=== PATIENT | female | born 1970 | race African-American/Black ===

== ENCOUNTER 2017-07-24 09:51 | Observation (INO) | payer BC ==
--- NOTE | 2017-07-24 10:42 | RAD ---
2 VIEWS CHEST: Date: 07/24/17 COMPARISON: 10/22/07. HISTORY: Syncope. Patient was found on the ground in the bathroom by her son. FINDINGS: Two views of the chest show an enlarged but stable cardiomediastinal silhouette. There is no evidence of consolidation, mass, or pleural effusion. Mild degenerative changes are seen in the spine. IMPRESSION: Stable cardiomegaly. POS: [facility]
[2017-07-24] MEDS ORDERED: Amlodipine 5 MG TAB ONE (10:48)
[2017-07-24] MEDS ORDERED: cloNIDine 0.1 MG TAB ONE (10:48)
[2017-07-24] MEDS ORDERED: Amlodipine 10 MG TAB PO SCH (11:00)
[2017-07-24 11:10] LABS: ALT (SGPT) 14 U/L (8-55); AST (SGOT) 14 U/L (5-34); Albumin 4.1 g/dL (3.5-5.0); Alkaline Phosphatase 82 U/L (40-150); Anion Gap 13 mmol/L (10-20); BUN (Urea Nitrogen) 21 mg/dL (7.0-18.7); Bilirubin, Total 0.7 mg/dL (0.2-1.2); CK (CPK) 85 U/L (29-168); Calc. Creatinine Clearance 0 mL/min (70-130); Calcium 9.9 mg/dL (7.8-10.44); Carbon Dioxide 26 mmol/L (22-29); Chloride 103 mmol/L (98-107); Estimated GFR-MDRD 44; Globulin 3.8 g/dL (2.4-3.5); Glucose 105 mg/dL (70-105); Lipase 15 U/L (8-78); Potassium 4.1 mmol/L (3.5-5.1); Protein, Total 7.9 g/dL (6.0-8.3); Sodium 138 mmol/L (136-145)
[2017-07-24 11:13] LABS: CKMB 2.8 ng/mL (0-6.6); Troponin I 0.056 ng/mL (< 0.028)
--- NOTE | 2017-07-24 11:26 | CT ---
BRAIN CT WITHOUT IV CONTRAST: Date: 07/24/17 HISTORY: 46-year-old female with syncope. History of prior TIA. FINDINGS: There is no focal mass or midline shift. No intra or extra-axial hemorrhage. Sinuses and mastoids are clear of acute process. There are some scattered scalp calcifications. IMPRESSION: No acute intracranial process. No mass or bleed. POS: [facility]
[2017-07-24 11:31] LABS: BHCG - Serum Negative (NEGATIVE); Pregs Control Background? CLEAR/WHITE (CLR/WHITE); Pregs Control Bar Appear? YES (CONTROL BAR)
[2017-07-24 11:33] LABS: #Eosinphils 0.2 thou/uL (0.0-0.7); #Lymphocytes 1.2 thou/uL (1.20-3.40); #Monocytes 0.6 thou/uL (0.11-0.59); #Neutrophils 7.4 thou/uL (1.40-6.50); %Basophils 0.1 % (0.0-1.0); %Eosinophils 2.5 % (0.0-10.0); %Lymphocytes 12.8 % (21.0-51.0); %Monocytes 6.5 % (0.0-10.0); %Neutrophils 78.1 % (42.0-75.0); Hemoglobin 14.2 g/dL (12.0-16.0); Mean Corpuscular HGB CONC 31.5 g/dL (32.0-36.0); Mean Corpuscular Hemoglobin 28.4 pg (27.0-31.0); Mean Corpuscular Volume 90.1 fl (81.0-99.0); Mean Platelet Volume 7.4 fL (7.4-10.4); Platelet Count 291 thou/uL (130-400); Red Blood Cell (RBC) Count 4.99 mill/uL (4.20-5.40); White Blood Cell (WBC) Count 9.4 thou/uL (4.8-10.8)
[2017-07-24 13:08] LABS: Troponin I 0.069 ng/mL (< 0.028)
[2017-07-24] MEDS ORDERED: Nitroglycerin 2% Ointment 1 INCH/1 GM Packet ONE (14:20)
[2017-07-24] MEDS ORDERED: Sodium Chloride 0.65% Nasal 44 ML BOT EA NARE PRN (15:44)
[2017-07-24] MEDS ORDERED: Loratadine 10 MG TAB PO PRN (15:44)
[2017-07-24] MEDS ORDERED: Zolpidem Tartrate 5 MG TAB PO PRN (15:44)
[2017-07-24] MEDS ORDERED: Milk Of Magnesia 30 ML UDCUP PO PRN (15:44)
[2017-07-24] MEDS ORDERED: Diabetic Tussin 200 MG/10 ML UDCUP PO PRN (15:44)
[2017-07-24] MEDS ORDERED: Senokot 8.6 MG TAB PO PRN (15:44)
[2017-07-24] MEDS ORDERED: Chloraseptic Spray 180 ml Bottle PO PRN (15:44)
[2017-07-24] MEDS ORDERED: hydrALAZINE 20 MG/ML VIAL SLOW IVP PRN (15:44)
[2017-07-24] MEDS ORDERED: Eucerin (Mineral Oil/Petrolatum,White) 30 gm Jar TOP PRN (15:44)
[2017-07-24] MEDS ORDERED: Loperamide HCl 2 MG CAP PO PRN (15:44)
[2017-07-24] MEDS ORDERED: Mag-Al 1200 mg/1200 mg/30 ML UDCUP PO PRN (15:44)
[2017-07-24] MEDS ORDERED: Nitroglycerin 0.4 MG TAB (25 Tab Bottle) SL PRN (15:44)
[2017-07-24] MEDS ORDERED: Ondansetron HCl/PF 4 MG/2 ML Vial IVP PRN (15:44)
[2017-07-24] MEDS ORDERED: Acetaminophen 325 MG TAB PO PRN (15:44)
[2017-07-24] MEDS ORDERED: Ondansetron ODT 4 MG TAB PO PRN (15:44)
[2017-07-24] MEDS ORDERED: Artificial Tear Sol 15 ML BOT EA EYE PRN (15:44)
--- NOTE | 2017-07-24 15:59 | HP ---
PRIMARY CARE PHYSICIAN: Marc Brush M.D. REASON FOR ADMISSION: Syncope. HISTORY OF PRESENT ILLNESS: A 46-year-old female with a history of hypertension who presented to the emergency room for evaluation of syncope. The patient does not have any recall of event, but patient's son found her in bathroom. The patient reports that she went to restroom and mccloud bsequently she remembered being on the floor. She does not know how this happened, but she did not h ave any chest pain, palpitation, dizziness. She denies any headache. She denies any focal motor or sensory symptoms. She denies any diarrhea, or UTI symptoms. She denies any orthopnea, PND or leg sw elling. She denies any calf tenderness. She denies any immobilization. Patient reports that she was dealing with high blood pressure at home. She was not tolerating lisino pril and recently her medication was changed to amlodipine and she was taking clonidine. Patient rep orts that she did not took her medication yesterday and she had marijuana on . When this patient came to the ER, her blood pressure was very high. As per paramedics, blood pressur e was 210/122 and blood sugar was 140. When she arrived to the emergency room, her blood pressure re duced to 196/119. In the emergency room, patient has received aspirin, nitropatch, and Norvasc 10 mg and clonidine 0.1 mg. Routine blood tests showed slightly indeterminate troponin. When I saw this patient, patient does not have any focal neurological deficit. She does not have any chest pain and palpitation. She is feeling normal. REVIEW OF SYSTEMS: The following complete review of systems was negative, unless otherwise mentioned in the HPI or below: Constitutional: Weight loss or gain, ability to conduct usual activities. Skin: Rash, itching. Eyes: Double vision, pain. ENT/Mouth: Nose bleeding, neck stiffness, pain, tenderness. Cardiovascular: Palpitations, dyspnea on exertion, orthopnea. Respiratory: Shortness of breath, wheezing, cough, hemoptysis, fever or night sweats. Gastrointestinal: Poor appetite, abdominal pain, heartburn, nausea, vomiting, constipation, or diarr hea. Genitourinary: Urgency, frequency, dysuria, nocturia. Musculoskeletal: Pain, swelling. Neurologic/Psychiatric: Anxiety, depression. Allergy/Immunologic: Skin rash, bleeding tendency. Please see my HPI for pertinent positives and negatives. All other review of system reviewed and neg ative except as mentioned in the HPI. PAST MEDICAL HISTORY: History of iron deficiency anemia, hypertension, obesity. PAST SURGICAL HISTORY: Reviewed and negative. PAST PSYCHIATRIC HISTORY: Reviewed and negative. SOCIAL HISTORY: Patient lives at home. She drinks alcohol very occasionally. She abuses marijuana intermittently and last use was yesterday. She denies any smoking or other illicit drug abuse. FAMILY HISTORY: No strong family history of premature coronary artery disease, stroke or cancer. ALLERGIES: No known drug allergies. CURRENT HOME MEDICATIONS: Amlodipine 10 mg p.o. daily and clonidine 0.1 mg p.o. at bedtime. EMERGENCY ROOM COURSE: Patient has received clonidine 0.1 mg, amlodipine 10 mg, nitropatch, and aspi rin 324 mg. PHYSICAL EXAMINATION: VITAL SIGNS: On arrival, blood pressure 196/119, pulse 93, respiratory rate 18, temperature 98.0, sa turation 97% on room air, and weight 136.9 kilograms. GENERAL: Patient is currently hypertensive, no obvious acute distress. HEAD: Normocephalic, atraumatic. EYES: Pupils round, reactive to light. Extraocular muscles intact. ENT: Oropharynx within normal limits. Moist mucous membranes. No oral lesions. No pharyngeal eryt oscar, no exudate. NECK: Supple, no JVD, no thyromegaly, no carotid bruit, no jugular venous distention. LUNGS: Clear to auscultation without any rhonchi or rales. CARDIAC: S1, S2 regular. No murmur, no gallop, no rub. ABDOMEN: Soft, bowel sounds present, obesity present. No peritoneal sign, no guarding, no rigidity, no rebound, no suprapubic tenderness. BACK: Examination unremarkable, no CVA tenderness. EXTREMITIES: Upper extremity; passive movements of all joints are normal. Lower extremities: No ed sonny. Good peripheral pulsation. SKIN: No skin rash. PSYCHIATRIC: Normal affect. HEMATOLOGICAL SYSTEM: No lymphadenopathy. NEUROLOGIC: Patient is alert and oriented x3. Cranial nerves II-XII intact. Speech, normal. Motor 5/5 in all four limbs. Sensation bilaterally symmetrical, no focal neurological deficit noted. IMAGING DATA AND SIGNIFICANT LABORATORY DATA: 1. EKG based on my review reveals normal sinus rhythm, nonspecific ST-T changes, LVH, left atrial en largement and prolonged QTC. 2. CBC: WBC 9.4, hemoglobin 14.2, platelet 291. 3. test negative. 4. Chest x-ray based on my review, no acute cardiopulmonary process. 5. CK-MB 2.8, troponin I 0.056, lipase 15, CK of 85. 6. BMP: Sodium 138, potassium 4.1, chloride 103, carbon dioxide 26, anion gap 13, BUN 21, creatinin e 1.54, glucose 105, calcium 9.9. 7. LFT: Total protein 7.9, albumin 4.1, alkaline phosphatase 82, AST 14, ALT 14. 8. Another troponin 0.069. ASSESSMENT AND PLAN/IMPRESSION: 1. Syncope, etiology uncertain. This patient's syncopal episode was unwitnessed and unexplained. S he has elevated troponin, but troponin is chronically elevated. Her blood pressure is very high, thi s patient will need further evaluation. We will obtain echocardiography, carotid Doppler ultrasound to rule out carotid stenosis and tomorrow morning we will perform stress test to rule out underlying ischemia. We will check lipid profile tomorrow morning and we will monitor on telemetry floor for an y kind of arrhythmia. We will try to control blood pressure more effectively. This patient does not have any focal neurological deficits and her CT brain is negative for any acute intracranial process . 2. Hypertension with hypertensive urgency. Likely due to medication noncompliance as well as dietar y noncompliance. We will continue with amlodipine 10 mg p.o. daily. We will add hydralazine 25 mg p .o. t.i.d. and clonidine 0.1 mg p.o. b.i.d. On discharge, we will consider adding Coreg as well. We will monitor her vitals more frequently and adjust blood pressure medication. 3. Morbid obesity. Dietary education given, weight loss education given. Healthy lifestyle measure s discussed with the patient. 4. Cannabis abuse. The patient is given counseling to avoid cannabis abuse. 5. Chronic kidney disease stage 3. We will monitor renal function and avoid nephrotoxic agent. 6. Hypertension with hypertensive heart disease with left ventricular hypertrophy. We will obtain e chocardiography to assess ejection fraction and other structural abnormality. 7. Deep venous thrombosis prophylaxis not needed because we are expecting discharge in 24 hours. 8. Gastrointestinal prophylaxis, Pepcid 20 mg p.o. b.i.d. 9. Code status: The patient is FULL CODE. Patient does not have any surrogate decision maker. Disposition and plan based on clinical course based on above-mentioned investigation result.
[2017-07-24] MEDS ORDERED: hydrALAZINE 25 MG TAB PO SCH (16:00)
[2017-07-24 16:24] LABS: Troponin I 0.084 ng/mL (< 0.028)
[2017-07-24 17:10] VITALS: BMI 46.5
--- NOTE | 2017-07-24 19:04 | ULT ---
BILATERAL CAROTID DUPLEX ULTRASOUND: 07/24/17 HISTORY: Syncope. Real time color doppler evaluation of the right and left carotid systems was performed. On the right side, peak systolic velocities of the common carotid were 182 cm/s proximally with velocities at the mid and distal level in the 50 to 70 cm/s range. Internal carotid velocities were 48 cm/s and externa l carotid velocities 76 cm/s. On the left side, peak systolic velocities of the proximal common carotid artery were also somewhat e levated at 160 cm/s. More distal velocities were 52 cm/s. Internal carotid velocities were 60 cm/s. E xternal 70 cm/s. Vertebral flow is antegrade bilaterally. IMPRESSION: 1. No evidence of hemodynamically significant stenosis of either internal carotid artery. 2. Mildly elevated velocities of both proximal common carotid arteries incidentally noted. POS: [facility]
[2017-07-24] MEDS: HYDROcodone/Acetaminophen 5/325 mg Tablet PO PRN (19:24)
[2017-07-24] MEDS: Nitroglycerin 2% Ointment 1 INCH/1 GM Packet TOP SCH (20:26)
[2017-07-24] MEDS: hydrALAZINE 25 MG TAB PO SCH (20:28)
[2017-07-24] MEDS: cloNIDine 0.1 MG TAB PO SCH (20:28)
[2017-07-24 22:47] LABS: Amphetamine Not Detected (NotDetected); Barbiturates Screen Not Detected (NotDetected); Benzodiazepine Screen Not Detected (NotDetected); Cocaine Metabolite Screen Not Detected (NotDetected); Medtox Control Line Valid? VALID (VALID); Medtox Reader # READER 1; Methadone Not Detected (NotDetected); Methamphetamine Not Detected (NotDetected); Opiate Screen Not Detected (NotDetected); Oxycodone Screen Not Detected (NotDetected); Phencyclidine (PCP) Not Detected (NotDetected); THC/Cannabinoid Screen Detected (NotDetected); Tricyclic Screen Not Detected (NotDetected)
[2017-07-25] MEDS: HYDROcodone/Acetaminophen 5/325 mg Tablet PO PRN ×2 (01:06→12:12)
[2017-07-25] MEDS: Nitroglycerin 2% Ointment 1 INCH/1 GM Packet TOP SCH ×4 (01:27→22:01)
[2017-07-25 05:53] LABS: Cardiac Risk 3.5 (Less than 4.5)
[2017-07-25] MEDS: cloNIDine 0.1 MG TAB PO SCH ×2 (08:14→20:55)
[2017-07-25] MEDS: Famotidine 20 MG TAB PO SCH (08:15)
[2017-07-25] MEDS: Amlodipine 10 MG TAB PO SCH (08:15)
[2017-07-25] MEDS: hydrALAZINE 25 MG TAB PO SCH ×3 (08:15→20:55)
[2017-07-25 08:21] LABS: Troponin I 0.095 ng/mL (< 0.028)
[2017-07-25] MEDS ORDERED: Aspirin 325 MG TAB PO SCH (09:00)
--- NOTE | 2017-07-25 11:11 | PDOC.PN ---
- Subjective Encounter Start Date: 07/25/17 Encounter Start Time: 07:30 -: old records requested/rev Patient seen and examined. No new complaints. No overnight events - Objective Resuscitation Status: Resuscitation Status FULL:Full Resuscitation MAR Reviewed: Yes Vital Signs & Weight: Vital Signs (12 hours) Temp Pulse Resp BP BP BP Pulse Ox 07/25/17 08:14 97.5 F L 71 14 07/25/17 07:35 97.5 F L 71 14 181/91 H 97 07/25/17 03:01 98.3 F 72 14 167/80 H 100 07/24/17 23:20 98.5 F 76 16 148/71 H 99 Weight Weight 254 lb 12.8 oz I&O: 07/24/17 07/25/17 07/26/17 06:59 06:59 06:59 Intake Total 490 Output Total 250 Balance 240 Result Diagrams: 07/24/17 10:44 07/24/17 10:44 EKG Reviewed by me: Yes (nsr) Phys Exam - Physical Examination Constitutional: NAD HEENT: PERRLA, moist MMs, sclera anicteric Neck: no JVD, supple Respiratory: no wheezing, no rales, no rhonchi Cardiovascular: RRR, no significant murmur, no rub Gastrointestinal: soft, non-tender, no distention, positive bowel sounds Musculoskeletal: no edema, pulses present Neurological: non-focal, normal sensation, moves all 4 limbs Psychiatric: normal affect, A&O x 3 Skin: no rash, normal turgor Dx/Plan (1) Hypertensive urgency Code(s): I16.0 - HYPERTENSIVE URGENCY Status: Acute (2) Syncope Code(s): R55 - SYNCOPE AND COLLAPSE Status: Acute (3) CKD (chronic kidney disease) stage 3, GFR 30-59 ml/min Code(s): N18.3 - CHRONIC KIDNEY DISEASE, STAGE 3 (MODERATE) Status: Chronic (4) Cannabis abuse Code(s): F12.10 - CANNABIS ABUSE, UNCOMPLICATED Status: Chronic (5) Elevated troponin Code(s): R74.8 - ABNORMAL LEVELS OF OTHER SERUM ENZYMES Status: Chronic (6) Morbid obesity with BMI of 45.0-49.9, adult Code(s): E66.01 - MORBID (SEVERE) OBESITY DUE TO EXCESS CALORIES; Z68.42 - BODY MASS INDEX (BMI) 45.0-49.9, ADULT Status: Chronic - Plan cont current plan of care * today echo * stress test * will discharge later today if tests are normal * adjust BP meds * medication reviewed as below * symptomatic treatment Review of Systems - Review of Systems ENT: negative: Ear Pain, Ear Discharge, Nose Pain, Nose Discharge, Nose Congestion, Mouth Pain, Mouth Swelling, Throat Pain, Throat Swelling, Other Respiratory: negative: Cough, Dry, Shortness of Breath, Hemoptysis, SOB with Excertion, Pleuritic Pain, Sputum, Wheezing Cardiovascular: negative: chest pain, palpitations, orthopnea, paroxysmal nocturnal dyspnea, edema, light headedness, other Gastrointestinal: negative: Nausea, Vomiting, Abdominal Pain, Diarrhea, Constipation, Melena, Hematochezia, Other Genitourinary: negative: Dysuria, Frequency, Incontinence, Hematuria, Retention , Other Musculoskeletal: negative: Neck Pain, Shoulder Pain, Arm Pain, Back Pain, Hand Pain, Leg Pain, Foot Pain, Other Skin: negative: Rash, Lesions, Octavio, Bruising, Other - Medications/Allergies Allergies/Adverse Reactions: Allergies Allergy/AdvReac Type Severity Reaction Status Date / Time No Known Allergies Allergy Verified 07/24/17 17:01 Medications: Current Medications Acetaminophen (Tylenol) 650 mg PO Q4H PRN PRN Reason: Headache/Fever or Pain Hydrocodone Bitart/Acetaminophen ([place] 5/325) 1 tab PO Q4H PRN PRN Reason: Moderate Pain (4-6) Last Admin: 07/25/17 01:06 Dose: 1 tab Al Hydroxide/Mg Hydroxide (Maalox) 30 ml PO Q6H PRN PRN Reason: Heartburn or Indigestion Amlodipine Besylate (Norvasc) 10 mg PO DAILY [facility] Last Admin: 07/25/17 08:15 Dose: 10 mg Artificial Tears (Tears Renewed 15ml Bottle) 0 drop EA EYE PRN PRN PRN Reason: Dry Eyes Aspirin (Aspirin Chewable) 81 mg PO DAILY [facility] Last Admin: 07/25/17 08:15 Dose: 81 mg Clonidine (Catapres) 0.1 mg PO Q4H PRN PRN Reason: Systolic BP > 180 Clonidine (Catapres) 0.1 mg PO BID [facility] Last Admin: 07/25/17 08:14 Dose: 0.1 mg Famotidine (Pepcid) 20 mg PO DAILY [facility] Last Admin: 07/25/17 08:15 Dose: 20 mg Guaifenesin (Robitussin Sf) 200 mg PO Q4H PRN PRN Reason: Cough Hydralazine HCl (Apresoline) 10 mg SLOW IVP Q4H PRN PRN Reason: Systolic BP > 180 Hydralazine HCl (Apresoline) 25 mg PO TID [facility] Last Admin: 07/25/17 08:15 Dose: 25 mg Loperamide HCl (Imodium) 2 mg PO PRN PRN PRN Reason: Diarrhea/Loose Stools Loratadine (Claritin) 10 mg PO DAILYPRN PRN PRN Reason: Sinus Symptoms Magnesium Hydroxide (Milk Of Magnesium) 30 ml PO DAILYPRN PRN PRN Reason: Constipation Mineral Oil/White Petrolatum (Eucerin Cream) 0 gm TOP BIDPRN PRN PRN Reason: Dry Skin Nitroglycerin (Nitrostat) 0.4 mg SL Q5MIN PRN PRN Reason: Chest Pain Nitroglycerin (Nitro-Bid 2% Ointment) 0.5 inch TOP Q8HR [facility] Last Admin: 07/25/17 01:27 Dose: Not Given Ondansetron HCl (Zofran Odt) 4 mg PO Q6H PRN PRN Reason: Nausea/Vomiting Ondansetron HCl (Zofran) 4 mg IVP Q6H PRN PRN Reason: Nausea/Vomiting Phenol (Chloraseptic [place] 180 Ml Bot) 0 ml PO PRN PRN PRN Reason: Sore Throat Senna (Senokot) 2 tab PO HSPRN PRN PRN Reason: Constipation Sodium Chloride ([place] Nasal [place] 0.65%) 0 ml EA NARE QIDPRN PRN PRN Reason: Nasal Congestion Zolpidem Tartrate (Ambien) 5 mg PO HSPRN PRN PRN Reason: Insomnia
[2017-07-25] MEDS: cloNIDine 0.1 MG TAB PO PRN (12:09)
[2017-07-26 03:30] VITALS: TEMP 98.2
[2017-07-26] MEDS: HYDROcodone/Acetaminophen 5/325 mg Tablet PO PRN (03:31)
[2017-07-26] MEDS: cloNIDine 0.1 MG TAB PO PRN (03:31)
[2017-07-26] MEDS: cloNIDine 0.1 MG TAB PO SCH (08:22)
[2017-07-26] MEDS: Famotidine 20 MG TAB PO SCH (08:23)
[2017-07-26] MEDS: Amlodipine 10 MG TAB PO SCH (08:23)
[2017-07-26] MEDS: hydrALAZINE 25 MG TAB PO SCH (08:24)
--- NOTE | 2017-07-26 09:54 | PDOC.PN ---
- Subjective Encounter Start Date: 07/26/17 Encounter Start Time: 07:40 Patient seen and examined. No new complaints. No overnight events - Objective Resuscitation Status: Resuscitation Status FULL:Full Resuscitation MAR Reviewed: Yes Vital Signs & Weight: Vital Signs (12 hours) Temp Pulse Resp BP BP Pulse Ox 07/26/17 08:24 72 07/26/17 08:23 72 07/26/17 08:22 179/88 H 07/26/17 07:54 98.2 F 72 14 07/26/17 07:12 98.4 F 64 18 167/85 H 96 07/26/17 06:02 179/88 H 07/26/17 03:31 186/103 H 07/26/17 03:28 98.2 F 72 14 186/103 H 100 07/25/17 23:05 98.4 F 65 20 165/97 H 94 L Weight Weight 254 lb 12.8 oz I&O: 07/25/17 07/26/17 07/27/17 06:59 06:59 06:59 Intake Total 490 510 Output Total 250 Balance 240 510 Result Diagrams: 07/24/17 10:44 07/24/17 10:44 EKG Reviewed by me: Yes (nsr) Phys Exam - Physical Examination Constitutional: NAD HEENT: PERRLA, moist MMs, sclera anicteric Neck: no JVD, supple Respiratory: no wheezing, no rales, no rhonchi Cardiovascular: RRR, no significant murmur, no rub Gastrointestinal: soft, non-tender, no distention, positive bowel sounds Musculoskeletal: no edema, pulses present Neurological: non-focal, normal sensation, moves all 4 limbs Lymphatic: no nodes Psychiatric: normal affect, A&O x 3 Skin: no rash, normal turgor Dx/Plan (1) Hypertensive urgency Code(s): I16.0 - HYPERTENSIVE URGENCY Status: Acute (2) Syncope Code(s): R55 - SYNCOPE AND COLLAPSE Status: Acute (3) CKD (chronic kidney disease) stage 3, GFR 30-59 ml/min Code(s): N18.3 - CHRONIC KIDNEY DISEASE, STAGE 3 (MODERATE) Status: Chronic (4) Cannabis abuse Code(s): F12.10 - CANNABIS ABUSE, UNCOMPLICATED Status: Chronic (5) Elevated troponin Code(s): R74.8 - ABNORMAL LEVELS OF OTHER SERUM ENZYMES Status: Chronic (6) Morbid obesity with BMI of 45.0-49.9, adult Code(s): E66.01 - MORBID (SEVERE) OBESITY DUE TO EXCESS CALORIES; Z68.42 - BODY MASS INDEX (BMI) 45.0-49.9, ADULT Status: Chronic - Plan cont current plan of care * medication reviewed as below * symptomatic treatment * stress test result pending, if normal, will DC to home * see discharge saleem. Review of Systems - Review of Systems ENT: negative: Ear Pain, Ear Discharge, Nose Pain, Nose Discharge, Nose Congestion, Mouth Pain, Mouth Swelling, Throat Pain, Throat Swelling, Other Respiratory: negative: Cough, Dry, Shortness of Breath, Hemoptysis, SOB with Excertion, Pleuritic Pain, Sputum, Wheezing Cardiovascular: negative: chest pain, palpitations, orthopnea, paroxysmal nocturnal dyspnea, edema, light headedness, other Gastrointestinal: negative: Nausea, Vomiting, Abdominal Pain, Diarrhea, Constipation, Melena, Hematochezia, Other Genitourinary: negative: Dysuria, Frequency, Incontinence, Hematuria, Retention , Other Musculoskeletal: negative: Neck Pain, Shoulder Pain, Arm Pain, Back Pain, Hand Pain, Leg Pain, Foot Pain, Other Skin: negative: Rash, Lesions, Octavio, Bruising, Other - Medications/Allergies Allergies/Adverse Reactions: Allergies Allergy/AdvReac Type Severity Reaction Status Date / Time No Known Allergies Allergy Verified 07/24/17 17:01 Medications: Current Medications Acetaminophen (Tylenol) 650 mg PO Q4H PRN PRN Reason: Headache/Fever or Pain Hydrocodone Bitart/Acetaminophen ([place] 5/325) 1 tab PO Q4H PRN PRN Reason: Moderate Pain (4-6) Last Admin: 07/26/17 03:31 Dose: 1 tab Al Hydroxide/Mg Hydroxide (Maalox) 30 ml PO Q6H PRN PRN Reason: Heartburn or Indigestion Amlodipine Besylate (Norvasc) 10 mg PO DAILY [facility] Last Admin: 07/26/17 08:23 Dose: 10 mg Artificial Tears (Tears Renewed 15ml Bottle) 0 drop EA EYE PRN PRN PRN Reason: Dry Eyes Aspirin (Aspirin Chewable) 81 mg PO DAILY [facility] Last Admin: 07/26/17 08:23 Dose: 81 mg Clonidine (Catapres) 0.1 mg PO Q4H PRN PRN Reason: Systolic BP > 180 Last Admin: 07/26/17 03:31 Dose: 0.1 mg Clonidine (Catapres) 0.1 mg PO BID [facility] Last Admin: 07/26/17 08:22 Dose: 0.1 mg Famotidine (Pepcid) 20 mg PO DAILY [facility] Last Admin: 07/26/17 08:23 Dose: 20 mg Guaifenesin (Robitussin Sf) 200 mg PO Q4H PRN PRN Reason: Cough Hydralazine HCl (Apresoline) 10 mg SLOW IVP Q4H PRN PRN Reason: Systolic BP > 180 Hydralazine HCl (Apresoline) 25 mg PO TID [facility] Last Admin: 07/26/17 08:24 Dose: 25 mg Loperamide HCl (Imodium) 2 mg PO PRN PRN PRN Reason: Diarrhea/Loose Stools Loratadine (Claritin) 10 mg PO DAILYPRN PRN PRN Reason: Sinus Symptoms Magnesium Hydroxide (Milk Of Magnesium) 30 ml PO DAILYPRN PRN PRN Reason: Constipation Mineral Oil/White Petrolatum (Eucerin Cream) 0 gm TOP BIDPRN PRN PRN Reason: Dry Skin Nitroglycerin (Nitrostat) 0.4 mg SL Q5MIN PRN PRN Reason: Chest Pain Nitroglycerin (Nitro-Bid 2% Ointment) 0.5 inch TOP Q8HR [facility] Last Admin: 07/25/17 22:01 Dose: Not Given Ondansetron HCl (Zofran Odt) 4 mg PO Q6H PRN PRN Reason: Nausea/Vomiting Ondansetron HCl (Zofran) 4 mg IVP Q6H PRN PRN Reason: Nausea/Vomiting Phenol (Chloraseptic [place] 180 Ml Bot) 0 ml PO PRN PRN PRN Reason: Sore Throat Senna (Senokot) 2 tab PO HSPRN PRN PRN Reason: Constipation Sodium Chloride ([place] Nasal [place] 0.65%) 0 ml EA NARE QIDPRN PRN PRN Reason: Nasal Congestion Zolpidem Tartrate (Ambien) 5 mg PO HSPRN PRN PRN Reason: Insomnia
[2017-07-26 10:05] VITALS: BP 149/82
--- NOTE | 2017-07-26 11:23 | DIS ---
PRIMARY CARE PHYSICIAN: Marc Brush M.D. DATE OF ADMISSION: 07/24/2017 DATE OF DISCHARGE: 07/26/2017 DISCHARGE DISPOSITION: Home. PRIMARY DISCHARGE DIAGNOSES: 1. Syncope, ruled out cardiac etiology. 2. Hypertensive urgency with hypertensive heart disease, chronically elevated troponin, cannabis abu se. SECONDARY DISCHARGE DIAGNOSES: Morbid obesity with body mass index of 46, chronic kidney disease sta ge 3, hypertension. PRIMARY PROCEDURE/OPERATION: None. RADIOLOGICAL INVESTIGATION: Chest x-ray was normal. CT brain was negative for any acute intracrania l process. Echocardiography showed diastolic dysfunction, LVH. Carotid Doppler was negative for any stenosis. Stress test was negative for any reversible ischemia. SIGNIFICANT LABS: WBC 9.4, hemoglobin 14.2, platelet 291. Sodium 138, potassium 4.1, BUN 21, creati nine 1.54, calcium 9.9. LFT normal. Troponin 0.095, LDL 104, lipase 15. test negative. Urine drug screen positive for cannabinoids. DISCHARGE MEDICATIONS: Amlodipine 10 mg p.o. daily, aspirin 81 mg p.o. daily, clonidine 0.1 mg p.o. b.i.d., Pepcid 20 mg p.o. daily, Ferrous sulfate 325 mg p.o. every other day, Lasix 20 mg p.o. daily, hydralazine 25 mg p.o. t.i.d. CONTRAINDICATIONS: None. CODE STATUS: FULL CODE. INPATIENT CONSULTANTS: None. ALLERGIES: No known drug allergy. DISCHARGE PLAN: Post hospital, the patient is advised to follow up with primary care physician in 1 week. HOSPITAL COURSE: A 46-year-old female who had an episode of syncope at home which was unwitnessed an d unexplained. She was brought to the emergency room. She was having hypertensive urgency upon arr ival. She had elevated troponin, but looking at her old history, she had chronically elevated tropon in. Her EKG was showing LVH with repolarization changes. We admitted her to observation floor. Ini tial CT brain was negative. Her subsequent troponin remained indeterminant range. We did echocardio graphy which showed LVH with diastolic dysfunction. Carotid Doppler was normal. Stress test came ba ck negative. The patient was completely asymptomatic while in hospital. Her blood pressure was not well controlle d and that is why we adjusted the above-mentioned medication and all new medication prescriptions sen t to her pharmacy. The patient was given healthy lifestyle measure discussion. The patient is seen and examined at bedside today. Please see my progress note from today for furthe r details. Overall, the patient is medically stable for discharge today.
--- NOTE | 2017-07-26 14:09 | NM ---
CARDIAC SPECT: HISTORY: Syncope. Hypertension. TECHNIQUE: A myocardial perfusion scan was performed using the single isotope protocol with 33 millicuries of te chnetium 99m sestamibi injected intravenously for stress and rest images. Exercise stress was monito red and interpreted by Dr. Mckeon. FINDINGS: A mild fixed defect at the distal anterior wall is likely due to wrist and attenuation artifact rathe r than scar. No reversible defects are seen. GATED SPECT LVEF: 34% WALL MOTION EXAM: Global hypokinesis. IMPRESSION: No evidence of reversible ischemia. POS: [facility]
--- NOTE | 2017-07-28 13:34 | STRESS ---
Acquisition Time: 2017-07-25 10:08:31 Total Exercise Time: 00:08:26 Test Indications: Syncope Medications: Protocol: RENÉE Max HR: 155 BPM 89% of Pred: 173 BPM Max BP: 184/094 mmHG Max Work Load: 7.0 METS RESTING ECG: NORMAL SINUS RHYTHM AT 75 WITH NON-SPECIFIC T-WAVE ABNORMALITIES AND RARE PVCs SYMPTOMS: DYSPNEA ON EXERTION APPROPRIATE BLOOD PRESSURE RESPONSE ECTOPY: NONE ECG RESPONSE: NO SIGNIFICANT CHANGES INTERPRETATION: NEGATIVE ECG/AWAIT NUCLEAR IMAGES FOR DEFINITIVE DIAGNOSIS Confirmed by JAJA HENNING MD ([id number]) on 07/28/2017 1:34:10 PM Referred By: Gema CASTELLANO Confirmed By:JAJA HENNING MD
== END 2017-07-26 10:45 | disposition home or self-care (01) ==
LOC: ERS 09:51 → 2SW 15:43
PROVIDERS: ADMIT Internal Medicine; ATTEND Internal Medicine
DX: R55 Syncope and collapse (principal); I16.0 Hypertensive urgency; I12.9 Hypertensive chronic kidney disease with stage 1 through stage 4 chronic kidney disease, or unspecified chronic kidney disease; N18.3 Chronic kidney disease, stage 3 (moderate); R79.89 Other specified abnormal findings of blood chemistry; F12.10 Cannabis abuse, uncomplicated; E66.01 Morbid (severe) obesity due to excess calories; Z68.42 Body mass index [BMI] 45.0-49.9, adult; Z79.899 Other long term (current) drug therapy
CPT/HCPCS: 36415; 70450; 71020; 78452; 80053; 80061; 80306; 82553; 83690; 84484; 84703; 85025; 93005; 93017; 93306; 93880; 94760; A9500; G0378

== ENCOUNTER 2017-10-04 04:54 | Emergency (ER) | payer BC ==
[2017-10-04] MEDS ORDERED: HYDROcodone/Acetaminophen 10/325 mg Tablet ONE (05:18)
== END 2017-10-04 06:07 | disposition home or self-care (01) ==
LOC: ERS 04:54
DX: S16.1XXA Strain of muscle, fascia and tendon at neck level, initial encounter (principal); I10 Essential (primary) hypertension; Z86.73 Personal history of transient ischemic attack (TIA), and cerebral infarction without residual deficits; Z79.899 Other long term (current) drug therapy; X58.XXXA Exposure to other specified factors, initial encounter
CPT/HCPCS: 99283

== ENCOUNTER 2019-01-01 22:24 | Inpatient (IN) | payer BC, SELFPAY ==
[2019-01-01] MEDS ORDERED: cloNIDine 0.1 MG TAB ONE (22:49)
[2019-01-01] MEDS ORDERED: Amlodipine 5 MG TAB ONE ×2 (22:49→22:51)
[2019-01-01 23:03] LABS: #Basophils 0.1 thou/uL (0.0-0.2); #Eosinphils 0.2 thou/uL (0.0-0.7); #Lymphocytes 1.6 thou/uL (1.20-3.40); #Monocytes 0.6 thou/uL (0.11-0.59); #Neutrophils 6.1 thou/uL (1.40-6.50); %Basophils 0.8 % (0.0-1.0); %Eosinophils 2.2 % (0.0-10.0); %Lymphocytes 19.1 % (21.0-51.0); Hemoglobin 11.6 g/dL (12.0-16.0); Mean Corpuscular HGB CONC 32.6 g/dL (32.0-36.0); Mean Corpuscular Hemoglobin 29.8 pg (27.0-31.0); Mean Corpuscular Volume 91.4 fL (78.0-98.0); Mean Platelet Volume 7.4 fL (7.4-10.4); Platelet Count 232 thou/uL (130-400); RBC Distribution Width 13.2 % (11.5-14.5); Red Blood Cell (RBC) Count 3.88 mill/uL (4.20-5.40); White Blood Cell (WBC) Count 8.6 thou/uL (4.8-10.8)
--- NOTE | 2019-01-01 23:22 | RAD ---
EXAM: CHEST ONE VIEW HISTORY: Syncopal episode. Confusion. COMPARISON: 07/24/2017 FINDINGS: Cardiac silhouette remains enlarged. Pulmonary vasculature is within normal limits. Stable minimal li near scarring is again seen in the left midlung zone. The lungs otherwise remain clear. The osseous structures are intact. IMPRESSION: 1. Cardiomegaly. 2. No acute cardiopulmonary process.
[2019-01-01 23:24] LABS: ALT (SGPT) 9 U/L (8-55); AST (SGOT) 9 U/L (5-34); Albumin 4.2 g/dL (3.5-5.0); Alkaline Phosphatase 79 U/L (40-150); Anion Gap 14 mmol/L (10-20); BUN (Urea Nitrogen) 30 mg/dL (7.0-18.7); Bilirubin, Total 0.5 mg/dL (0.2-1.2); Calc. Creatinine Clearance 0 mL/min (70-130); Calcium 9.3 mg/dL (7.8-10.44); Carbon Dioxide 27 mmol/L (22-29); Chloride 102 mmol/L (98-107); Estimated GFR-MDRD 23; Globulin 2.9 g/dL (2.4-3.5); Glucose 127 mg/dL (70-105); Potassium 3.6 mmol/L (3.5-5.1); Protein, Total 7.1 g/dL (6.0-8.3); Sodium 139 mmol/L (136-145)
[2019-01-01 23:45] LABS: CKMB 1.6 ng/mL (0-6.6)
[2019-01-02] MEDS ORDERED: hydrALAZINE 20 MG/ML VIAL ONE (00:41)
[2019-01-02] MEDS ORDERED: Acetaminophen 325 MG TAB PO PRN (01:18)
[2019-01-02] MEDS ORDERED: Ondansetron ODT 4 MG TAB SL PRN (01:18)
[2019-01-02] MEDS ORDERED: Ondansetron PF 4 MG/2 ML Vial IVP PRN (01:18)
[2019-01-02] MEDS ORDERED: Sodium Chloride 0.9% 1,000 ML IV SCH ×2 (01:30→02:30)
[2019-01-02 01:43] VITALS: BMI 43.0
[2019-01-02] MEDS ORDERED: cloNIDine 0.1 MG TAB PO PRN (02:18)
[2019-01-02 02:42] LABS: Troponin I 0.049 ng/mL (< 0.028)
[2019-01-02 03:06] LABS: Bilirubin Negative (Negative); Blood, Urine Negative (Negative); Clarity CLEAR (Clear); Glucose, Urine (Dipstick) Negative (Negative); Leukocyte Small (Negative); Nitrite Negative (Negative); Protein, Urine (Dipstick) 30 mg/dL (Neg-Trace); Specific Gravity, Urine 1.009 (1.002-1.036); Urobilinogen 0.2 mg/dL (0.2-1.0)
[2019-01-02 03:10] LABS: Bacteria/HPF Rare-Few HPF (None Seen); Hyaline Casts/LPF 0-3 HYALINE CAST LPF (0-3 Hyaline); Pathc Cast-AUWi Flag 0.13 (0-2.49); Squamous Epithelial 0-3 HPF (0-3)
[2019-01-02 03:13] LABS: Urine Culture Reflex Yes Yes
[2019-01-02 03:16] LABS: Amphetamine Not Detected (NotDetected); Barbiturates Screen Not Detected (NotDetected); Benzodiazepine Screen Not Detected (NotDetected); Cocaine Metabolite Screen Not Detected (NotDetected); Medtox Control Line Valid? VALID (VALID); Medtox Reader # READER 1; Methadone Not Detected (NotDetected); Methamphetamine Not Detected (NotDetected); Opiate Screen Not Detected (NotDetected); Oxycodone Screen Not Detected (NotDetected); Phencyclidine (PCP) Not Detected (NotDetected); THC/Cannabinoid Screen Detected (NotDetected); Tricyclic Screen Not Detected (NotDetected)
[2019-01-02] MEDS: hydrALAZINE 20 MG/ML VIAL SLOW IVP PRN ×2 (05:23→20:14)
[2019-01-02 05:50] LABS: #Basophils 0.1 thou/uL (0.0-0.2); #Eosinphils 0.1 thou/uL (0.0-0.7); #Lymphocytes 1.8 thou/uL (1.20-3.40); #Monocytes 0.6 thou/uL (0.11-0.59); #Neutrophils 6.7 thou/uL (1.40-6.50); %Basophils 0.5 % (0.0-1.0); %Eosinophils 1.3 % (0.0-10.0); %Lymphocytes 19.1 % (21.0-51.0); %Monocytes 6.9 % (0.0-10.0); %Neutrophils 72.2 % (42.0-75.0); Hemoglobin 11.3 g/dL (12.0-16.0); Mean Corpuscular HGB CONC 32.9 g/dL (32.0-36.0); Mean Corpuscular Hemoglobin 29.8 pg (27.0-31.0); Mean Corpuscular Volume 90.7 fL (78.0-98.0); Mean Platelet Volume 7.7 fL (7.4-10.4); Platelet Count 220 thou/uL (130-400); RBC Distribution Width 13.3 % (11.5-14.5); White Blood Cell (WBC) Count 9.3 thou/uL (4.8-10.8)
[2019-01-02 06:09] LABS: Anion Gap 13 mmol/L (10-20); BUN (Urea Nitrogen) 33 mg/dL (7.0-18.7); Calc. Creatinine Clearance 48 mL/min (70-130); Calcium 9.4 mg/dL (7.8-10.44); Carbon Dioxide 22 mmol/L (22-29); Chloride 105 mmol/L (98-107); Estimated GFR-MDRD 26; Glucose 108 mg/dL (70-105); Potassium 3.9 mmol/L (3.5-5.1); Sodium 136 mmol/L (136-145)
[2019-01-02 06:13] LABS: Troponin I 0.057 ng/mL (< 0.028)
[2019-01-02] MEDS ORDERED: levETIRAcetam In NaCl (Iso-Os) 1,000 MG in Premix Bag 1 BAG IVPB SCH (06:15)
[2019-01-02] MEDS ORDERED: Labetalol HCl 100 MG/20 ML VIAL ONE (06:35)
--- NOTE | 2019-01-02 06:51 | PDOC.EVN ---
Event Note - Event Note Event Note: Code Anand called at 06:00 after patient found to be tachycardic with hemoptysis. Initial vital signs revealed normal heart rate and normal blood pressure. Patient maintaining oxygen saturation. She was unresponsive to questions or sternal rub, but quickly started moving extremities. She was not able to follow commands at any point. Small laceration seen on her tongue, but full oropharyngeal exam unable to be performed to look for a source of bleeding. It was felt patient needed to be intubated, but attending physician elected to monitor and evaluate with CT head first. Patient admitted for syncope with w/u pending. Concern for seizure warranted loading dose of Keppra at this time. Patient stable and being transferred to [facility].
--- NOTE | 2019-01-02 08:03 | CT ---
BRAIN CT WITHOUT IV CONTRAST: HISTORY: Aspiration status post cardiac arrest. COMPARISON: 07/24/2017. FINDINGS: No focal mass or midline shift. No intra- or extraaxial hemorrhage. Sinuses and mastoids are clear. IMPRESSION: No acute intracranial process. No mass or bleed. POS: OFF
--- NOTE | 2019-01-02 08:58 | RAD ---
CHEST 1 VIEW: HISTORY: Dyspnea. Aspiration. COMPARISON: 01/01/2019. FINDINGS: Cardiac silhouette is magnified and enlarged. Pulmonary vasculature within normal limits. Mediastin um is midline. No lobar consolidation or evidence of pneumothorax. nurse monitoring leads overlie th e chest. IMPRESSION: Cardiomegaly and other chronic-type findings are stable. POS: [facility]
[2019-01-02] MEDS ORDERED: cloNIDine 0.1 MG TAB PO SCH (09:00)
[2019-01-02] MEDS ORDERED: Furosemide 20 MG TAB PO SCH (09:00)
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
--- NOTE | 2019-01-02 09:23 | PDOC.EVN ---
Event Note - Event Note Event Note: brain CT unremarkable, CXR no acute process- ordered stat prolactin
[2019-01-02] MEDS: Enoxaparin Sodium 40 MG/0.4 ML SYRINGE SC SCH (10:12)
[2019-01-02] MEDS: cloNIDine 0.1 MG TAB PO SCH ×2 (10:12→20:19)
[2019-01-02] MEDS: Amlodipine 10 MG TAB PO SCH (10:12)
[2019-01-02] MEDS: Aspirin Chewable 81 MG TAB PO SCH (10:12)
--- NOTE | 2019-01-02 12:35 | HP ---
PRIMARY CARE PHYSICIAN: Dr. Brush. TIME OF EVALUATION: 02:00 a.m. CODE STATUS: Full code. CHIEF COMPLAINT: Syncope. HISTORY OF PRESENT ILLNESS: This is a 48-year-old male patient with past medical history of noncompliance, possible TIA, hyperlipidemia, came to the hospital after having an episode of syncope. The symptoms started suddenly with no clear triggers, no alleviating factors. When she was sitting and talking with her friends, she had to sit down, feeling lightheaded. She does not recall very well the details of that, symptoms were severe. REVIEW OF SYSTEMS: CONSTITUTIONAL: No fever, chills, or generalized weakness. RESPIRATORY: No cough, sputum production, or shortness of breath. CARDIOVASCULAR: No chest pain, palpitation. GASTROINTESTINAL: No nausea, vomiting, diarrhea, or abdominal pain. ENGINEERING AND OPERATIONS DIRECTOR: The patient has a syncopal episode with some dizziness. No headache, or feeling lightheaded. GENITOURINARY: No burning on urination. EXTREMITIES: No leg swelling. All other systems were reviewed and negative except for the findings mentioned above. PAST MEDICAL HISTORY: Positive for the findings mentioned in the HPI. PAST SURGICAL HISTORY: No surgical history. PSYCHIATRIC HISTORY: Depression. SOCIAL HISTORY: The patient drinks socially. He uses drugs, abuse marijuana. Lives at home with family. Former drug user. KNOWN ALLERGIES: No known drug allergies. REPORTED MEDICATIONS: Clonidine, amlodipine and Lasix. PHYSICAL EXAMINATION: VITAL SIGNS: On presentation, blood pressure was 200/92 with heart rate 66, respiratory rate was 18, temperature 98.6. Pain was 0/10, oxygen saturation was 98% on room air. GENERAL APPEARANCE: The patient is alert and oriented, not in acute distress. HEENT: Eyes normal conjunctivae. Moist oral mucosa. Anicteric. No JVD. RESPIRATORY: Bilateral air entry. No rales. No wheezes. Symmetric expansion. CARDIOVASCULAR: Normal rate, regular rhythm. No murmurs. No gallop. No edema. ABDOMEN: Soft, normal bowel sounds. MUSCULOSKELETAL: Baseline range of motion and strength. SKIN: Warm, intact. No pallor. No rash. No redness. Peripheral pulses are present. Capillary refill seems to be intact. NEUROLOGIC: No evidence of any new focal weakness. Cranial nerves seems to be intact. PSYCHIATRIC: The patient is in good mood. No anxiety. Optimal judgment. DIAGNOSTIC DATA: EKG was reviewed. The patient has normal sinus rhythm with a rate of 67 with some PVCs, some T-wave inversion with left ventricular hypertrophy. Cardiology was reviewed. Chest x-ray showed cardiomegaly with no acute changes. Chest x-ray was reviewed. The patient had cardiomegaly. No acute cardiopulmonary process. LABORATORY DATA: Labs were reviewed. ASSESSMENT AND PLAN: The patient will be placed in the hospital with following medical problems: 1. Seizures. During the dictation of this note, the patient had an episode of seizure. Code blue was activated. The patient was found to be having generalized grand mal seizure. We have placed the patient in IMCU. We will monitor closely. The patient is postictal. We will do chest x-ray to rule out aspirations. The patient has a large vomit after the episode, but now she is preserving the airways. We will do CT head since this episode is new for her. We will load the patient with Keppra since this seems to be not the very first episode and probably in the episode of syncope that she had been having the workup for or not, cardiac in etiology, but had been episode of seizure that she has been having for a long time and has been non-diagnosed. We will consult Neurology for any further recommendation for anti -seizures medications. 2. Hypertensive urgency. The patient has had blood pressure in the range of 170s. We will continue to treat with p.r.n. medications. Reconcile home medications for optimal control. 3. Deep venous thrombosis prophylaxis. 4. Acute kidney injury. The patient has presented with a creatinine of 2.6. In previous records, her creatinine was 1.5, so it is acute on chronic, this could be secondary to hypertensive emergency or chronic hypertension. We will consult Nephrology for any further recommendation for our patient. 5. Hyperglycemia. This is mild. We will monitor, no need for any acute intervention at this point. 6. High troponin in the indeterminate range, this is probably secondary to hypertension. We will control the underlying condition. Job ID: [id number] [facility]
--- NOTE | 2019-01-02 15:50 | ULT ---
ULTRASOUND RETROPERITONEUM COMPLETE: (RENAL) 01/02/19 HISTORY: 48-year-old female with acute kidney injury (BELKIS). COMPARISON: None. FINDINGS: RIGHT KIDNEY: 9.5 x 4.5 x 6 cm. LEFT KIDNEY: 11.5 X 5 X 6 cm. No hydronephrosis bilaterally. Bilateral renal parenchymal echogenicity is diffusely mildly-moderately increased, consistent with me dical renal disease. 1.5 cm round exophytic cyst protruding from left renal lower pole cortex. Urinary bladder volume 350 mL with no mural thickening. IMPRESSION: 1. No hydronephrosis. 2. Evidence for medical renal disease. 3. Small left renal cyst. AGUEDA Sterling POS: [facility]
[2019-01-02 16:30] LABS: Creatinine, Urine 65.98 mg/dL (47-110)
--- NOTE | 2019-01-02 19:24 | CON ---
DATE OF CONSULTATION: REASON FOR CONSULTATION: Elevated creatinine. HISTORY OF PRESENT ILLNESS: This is a 48-year-old female, who presented to the hospital for syncope. The patient has also developed acute kidney injury. Her baseline creatinine was 2.6 yesterday which improved to 2.3. Prior creatinine was around 1.5, in 2013 it was 0.9. She has hypertension and the patient was unaware of her elevated creatinine. PAST MEDICAL HISTORY: Significant for hypertension, hyperlipidemia, and TIA. SOCIAL HISTORY: uses marijuana. ALLERGIES: NO KNOWN DRUG ALLERGIES. FAMILY HISTORY: Negative for ESRD. HOME MEDICATION: List reviewed. REVIEW OF SYSTEMS: A 15-point review of systems was performed and negative except for positives noted above. GENERAL: HEAD: NECK: No swelling or lumps. NOSE: No epistaxis or discharge. EYES: No diplopia or pain. RESPIRATORY: CARDIOVASCULAR: GASTROINTESTINAL: /BAND MANAGER: MUSCULOSKELETAL: No joint pain. NEUROPSYCHIATRIC SYSTEMS: No suicidal ideation. No ideation. SKIN: Denies any rash or ulcer. PHYSICAL EXAMINATION: GENERAL: The patient is awake and alert. VITAL SIGNS: Afebrile, pulse 98, breathing 16, blood pressure 167/90. GENERAL APPEARANCE AND MENTAL STATUS: Fair. HEAD/NECK: Normocephalic. Atraumatic. EYES: EOMI. No deformity. EARS: Clear. No ulcers. NOSE: Intact. No lesions. MOUTH: Clear. No discharge. THROAT: Clear. No exudate. LUNGS: Clear. No crackles. CARDIAC: S1, S2. No rub. ABDOMEN: Benign. Bowel sounds positive. GENITALIA/RECTUM: Knowles absent. BACK/EXTREMITIES: Edema 0+. NEUROLOGICAL: Alert and motor intact. SKIN: LYMPHATICS: LABS: Reviewed. ASSESSMENT AND PLAN: 1. Chronic kidney disease stage 4 with stable acute kidney injury, improving. 2. Hypertension. Would recommend titrating medications. Medication based on GFR appropriate. No indication for dialysis at this time. We will follow this patient with you. Job ID: [id number]
[2019-01-02] MEDS: levETIRAcetam 500 MG TAB PO SCH (20:19)
--- NOTE | 2019-01-03 00:42 | CON ---
DATE OF CONSULTATION: 01/02/2019 CONSULTING PHYSICIAN: Hospitalist Service. IMPRESSION: Witnessed generalized tonic-clonic seizure with tongue trauma. PLAN: 1. Continue Keppra 500 mg twice a day. 2. Office followup. HISTORY OF PRESENT ILLNESS: Ms. Pickard is a 48-year-old black female with a past history of renal insufficiency and hypertension. She presented after a syncopal episode. After admission to work this up, she had a Code Blue called last night. Physician witnessed what appeared to be a generalized tonic-clonic seizure. She was tachycardic and had blood frothing from the mouth. She was given a loading dose of 1000 mg of Keppra. She is feeling fine now. She does not recall any postictal headache, nausea, chest pain, or other symptoms. She denies a history of seizures prior to this. PAST MEDICAL HISTORY: As listed above. ALLERGIES: NONE. SOCIAL HISTORY: Marijuana use. MEDICATIONS: List reviewed. REVIEW OF SYSTEMS: Ten system review of systems is otherwise negative. PHYSICAL EXAMINATION: GENERAL: Slightly overweight middle-aged woman, in no acute distress. VITAL SIGNS: Stable with blood pressures of 210/95. HEENT: Pupils are equal and reactive. Conjunctivae clear. There is a small area of bruise on the right side of the tongue. NECK: Supple. EXTREMITIES: No cyanosis. NEUROLOGIC: She is alert and appropriate. Her speech is fluent and clear. Exam is nonfocal. LABORATORY STUDIES: White blood cell count 8.6, hemoglobin 11.6. Chemistry panel showed a BUN of 30, creatinine 2.64. Urinalysis showed 7 to 10 white cells. SUMMARY: A middle-aged woman with new onset seizure. CT scan of the brain does not show a focal lesion. Lab work is otherwise negative as per any etiology for the seizures. I agree with continuing Keppra and will be happy to follow up with her as an outpatient. Job ID: [id number]
[2019-01-03] MEDS: Amlodipine 10 MG TAB PO SCH (09:08)
[2019-01-03] MEDS: Aspirin Chewable 81 MG TAB PO SCH (09:09)
[2019-01-03] MEDS: cloNIDine 0.1 MG TAB PO SCH ×2 (09:09→20:24)
[2019-01-03] MEDS: levETIRAcetam 500 MG TAB PO SCH ×2 (09:09→20:24)
[2019-01-03] MEDS: Enoxaparin Sodium 40 MG/0.4 ML SYRINGE SC SCH (09:10)
[2019-01-03 09:57] LABS: Anion Gap 10 mmol/L (10-20); BUN (Urea Nitrogen) 29 mg/dL (7.0-18.7); Calc. Creatinine Clearance 51 mL/min (70-130); Calcium 9.9 mg/dL (7.8-10.44); Carbon Dioxide 29 mmol/L (22-29); Chloride 106 mmol/L (98-107); Estimated GFR-MDRD 29; Glucose 99 mg/dL (70-105); Potassium 3.8 mmol/L (3.5-5.1); Sodium 141 mmol/L (136-145)
--- NOTE | 2019-01-03 12:50 | PRG ---
DATE OF SERVICE: 01/03/2019 SUBJECTIVE: This 48-year-old female, being seen for acute kidney injury. The patient denies any nausea, vomiting, or chest pain. OBJECTIVE: CONSTITUTIONAL: The patient is awake and alert. VITAL SIGNS: Afebrile, pulse 75, breathing 16, and blood pressure 176/94. GENERAL APPEARANCE AND MENTAL STATUS: Fair. HEAD/NECK: Normocephalic. Atraumatic. EYES: EOMI. No deformity. EARS: Clear. No ulcers. NOSE: Intact. No lesions. MOUTH: Clear. No discharge. THROAT: Clear. No exudate. LUNGS: Clear. No crackles. CARDIAC: S1, S2. No rub. ABDOMEN: Benign. Bowel sounds positive. GENITALIA/RECTUM: Knowles absent. BACK/EXTREMITIES: Edema 0+. NEUROLOGICAL: Alert and motor intact. SKIN: LYMPHATICS: LABORATORY DATA: Reviewed. ASSESSMENT AND PLAN: 1. Stage 4 chronic kidney disease, improved. 2. Acute kidney injury due to acute tubular necrosis, improved. 3. Hypertension. We will recommend titrating hydralazine. 4. Medications based on GFR appropriate. Renal ultrasound was negative for hydronephrosis. Job ID: [id number]
[2019-01-03] MEDS: hydrALAZINE 25 MG TAB PO SCH ×2 (16:09→20:24)
--- NOTE | 2019-01-03 22:02 | PDOC.PN ---
- Subjective Encounter Start Date: 01/03/19 Encounter Start Time: 12:00 Feels fairly well. Reports some muscle cramps in the legs. Says this always happens when the BP meds get into her system. - Objective Resuscitation Status - Order Detail: 01/02/19 03:20 Resuscitation Status Routine Resuscitation Status: FULL: Full Resuscitation MAR Reviewed: Yes Vital Signs & Weight: Vital Signs (12 hours) Temp Pulse BP Pulse Ox 01/03/19 20:24 64 177/93 H 01/03/19 20:00 100 01/03/19 19:10 97.5 F L 01/03/19 16:09 52 L 168/96 H 01/03/19 15:23 97.0 F L Weight Weight 227 lb 8 oz Most Recent Monitor Data Heart Rate from ECG 54 NIBP 177/93 NIBP BP-Mean 121 Respiration from ECG 18 SpO2 100 I&O: 01/02/19 01/03/19 01/04/19 06:59 06:59 06:59 Intake Total 175 1920 1470 Output Total 550 1225 Balance -331 381 9222 Result Diagrams: 01/02/19 05:16 01/03/19 09:26 Phys Exam - Physical Examination Constitutional: NAD Respiratory: no wheezing, no rales, no rhonchi, clear to auscultation bilateral Cardiovascular: RRR, no significant murmur Gastrointestinal: soft, non-tender, no distention, positive bowel sounds Musculoskeletal: no edema Neurological: non-focal, moves all 4 limbs Psychiatric: normal affect, A&O x 3 Dx/Plan (1) Seizure Code(s): R56.9 - UNSPECIFIED CONVULSIONS Status: Acute Comment: Neuro started Keppra (2) Hypertensive urgency Code(s): I16.0 - HYPERTENSIVE URGENCY Status: Acute (3) Syncope Code(s): R55 - SYNCOPE AND COLLAPSE Status: Acute Qualifiers: Syncope type: unspecified Qualified Code(s): R55 - Syncope and collapse (4) CKD (chronic kidney disease) stage 3, GFR 30-59 ml/min Code(s): N18.3 - CHRONIC KIDNEY DISEASE, STAGE 3 (MODERATE) Status: Chronic (5) Cannabis abuse Code(s): F12.10 - CANNABIS ABUSE, UNCOMPLICATED Status: Chronic (6) Elevated troponin Code(s): R74.8 - ABNORMAL LEVELS OF OTHER SERUM ENZYMES Status: Chronic Comment: NSTEMI Type II (7) Morbid obesity with BMI of 45.0-49.9, adult Code(s): E66.01 - MORBID (SEVERE) OBESITY DUE TO EXCESS CALORIES; Z68.42 - BODY MASS INDEX (BMI) 45.0-49.9, ADULT Status: Chronic - Plan * BP is still high. * Will start oral hydralazine. * Continue PO Keppra. * Anticipate discharge tomorrow if BP is improved and she is tolerating the Keppra. * Transfer to tele.
[2019-01-04 07:10] VITALS: TEMP 97
[2019-01-04] MEDS: hydrALAZINE 25 MG TAB PO SCH (09:05)
[2019-01-04] MEDS: Amlodipine 10 MG TAB PO SCH (09:06)
[2019-01-04] MEDS: cloNIDine 0.1 MG TAB PO SCH (09:06)
[2019-01-04] MEDS: levETIRAcetam 500 MG TAB PO SCH (09:06)
[2019-01-04] MEDS: Aspirin Chewable 81 MG TAB PO SCH (09:06)
[2019-01-04] MEDS: Enoxaparin Sodium 40 MG/0.4 ML SYRINGE SC SCH (09:06)
[2019-01-04 09:07] VITALS: BP 152/92
--- NOTE | 2019-01-04 11:53 | PRG ---
DATE OF SERVICE: 01/04/2019 SUBJECTIVE: This is a 48-year-old female, being seen for acute kidney injury. The patient denied any nausea, vomiting, or chest pain. OBJECTIVE: CONSTITUTIONAL: The patient is awake and alert. VITAL SIGNS: Afebrile, pulse 75, breathing 16, and blood pressure 152/92. GENERAL APPEARANCE AND MENTAL STATUS: Fair. HEAD/NECK: Normocephalic. Atraumatic. EYES: EOMI. No deformity. EARS: Clear. No ulcers. NOSE: Intact. No lesions. MOUTH: Clear. No discharge. THROAT: Clear. No exudate. LUNGS: Clear. No crackles. CARDIAC: S1, S2. No rub. ABDOMEN: Benign. Bowel sounds positive. GENITALIA/RECTUM: Knowles absent. BACK/EXTREMITIES: Edema 0+. NEUROLOGICAL: Alert and motor intact. SKIN: LYMPHATICS: ASSESSMENT AND PLAN: 1. Acute kidney injury, chronic kidney disease due to acute tubular necrosis, stable. 2. Hypertensive, stable. 3. Anemia, stable. 4. Medication based on GFR, appropriate. Job ID: [id number]
--- NOTE | 2019-01-06 05:39 | DIS ---
DATE OF ADMISSION: 01/01/2019 DATE OF DISCHARGE: 01/04/2019 DISCHARGE DIAGNOSES: 1. Syncopal episode. 2. Seizure. 3. Hypertensive urgency. 4. Chronic kidney disease stage 3. 5. Cannabis abuse. 6. Elevated troponin in the indeterminate range. 7. Morbid obesity. HISTORY OF PRESENT ILLNESS: This patient is a 48-year-old female, who presented to the hospital with apparent syncopal event. While the patient was being admitted , she also had a seizure and was subsequently loaded with Keppra. She was noted to be a bit hypertensive and maintained some initial hyperglycemia. Her GFR was slightly elevated above her baseline consistent with an [id number] renal insufficiency. The patient was seen in consultation by Nephrology. She was subsequently seen by Neurology and she had a brain CT, which was unremarkable. She had renal ultrasound by Nephrology, which revealed evidence for medical renal disease with small renal cyst and no hydronephrosis. Echocardiogram was performed, which revealed an ejection fraction of 40% to 45%, and some evidence of diastolic dysfunction. The patient has remained stable. However, her blood pressure remains slightly elevated. This was discussed with Nephrology and her hydralazine was initiated and the dose appropriately adjusted. She felt well. She was ambulating out of the [facility] to go to the cafeteria and Nephrology concurred that she was stable for discharge. Neurology felt comfortable with the plan to keep her on the p.o. Keppra. PHYSICAL EXAMINATION: VITAL SIGNS: On the day of discharge temperature is 97.0, pulse 64, BP 152/92. GENERAL APPEARANCE: Age-appropriate female, obese, no distress. Awake, alert, oriented. HEART: Regular rate and rhythm. LUNGS: Clear. ABDOMEN: Benign. EXTREMITIES: No edema. DISPOSITION: The patient is discharged to home. DISCHARGE MEDICATIONS: 1. She will be on hydralazine 25 mg t.i.d. 2. Keppra 500 mg b.i.d. 3. Lasix 20 mg daily. 4. Amlodipine 10 mg daily. 5. Aspirin 81 mg daily. 6. Clonidine 0.1 mg daily. DIET: She will be on a heart healthy diet. ACTIVITY: Activity level is as tolerated. FOLLOWUP: She will follow up with Dr. Brush as an outpatient as well as Dr. Ren and Randolph Jones and she can return to the hospital should she have any problems prior to that time. Time spent in discharge activities, including face time with the patient, was 39 min. Job ID: [id number] MTDD
== END 2019-01-04 10:37 | disposition home or self-care (01) | DRG 100 ==
LOC: ERS 22:24 → 2NO 23:51 → OBSVTOIN 23:51 → IMCU/EMU 01-02 06:33
PROVIDERS: ADMIT Hospitalist; ATTEND Hospitalist
DX: G40.409 Other generalized epilepsy and epileptic syndromes, not intractable, without status epilepticus (principal); N17.0 Acute kidney failure with tubular necrosis; R04.2 Hemoptysis; N18.4 Chronic kidney disease, stage 4 (severe); Z68.41 Body mass index [BMI] 40.0-44.9, adult; E78.5 Hyperlipidemia, unspecified; F32.9 Major depressive disorder, single episode, unspecified; I16.0 Hypertensive urgency; R73.9 Hyperglycemia, unspecified; R00.0 Tachycardia, unspecified; R74.8 Abnormal levels of other serum enzymes; F12.10 Cannabis abuse, uncomplicated; S01.512A Laceration without foreign body of oral cavity, initial encounter; I12.9 Hypertensive chronic kidney disease with stage 1 through stage 4 chronic kidney disease, or unspecified chronic kidney disease; E66.01 Morbid (severe) obesity due to excess calories; D64.9 Anemia, unspecified; X58.XXXA Exposure to other specified factors, initial encounter
CPT/HCPCS: 36415; 36416; 70450; 71045; 76770; 80048; 80053; 80306; 81001; 82553; 82570; 84145; 84156; 84484; 85025; 87086; 93005; 93306; 96374; J0360; J1650; J1953; J2405

== ENCOUNTER 2020-05-27 09:35 | Inpatient (IN) | payer OTHER ==
--- NOTE | 2020-05-27 09:56 | CT ---
CT Brain WO Con History: Altered mental status. Recent stroke. Comparison: CT brain December 2018 Findings: No acute hemorrhage or infarct. No midline shift or mass effect. Ventricular size and extra -axial CSF spaces are normal. Calvarium is intact. Paranasal sinuses and mastoids are clear. Impression: No acute intracranial abnormality.
[2020-05-27 10:24] LABS: Hemoglobin 10.7 g/dL (12.0-16.0); Mean Corpuscular HGB CONC 32.7 g/dL (32.0-36.0); Mean Corpuscular Hemoglobin 29.3 pg (27.0-31.0); Mean Corpuscular Volume 89.7 fL (78.0-98.0); Mean Platelet Volume 7.7 fL (7.4-10.4); Platelet Count 226 thou/uL (130-400); RBC Distribution Width 14.2 % (11.5-14.5); Red Blood Cell (RBC) Count 3.65 mill/uL (4.20-5.40); White Blood Cell (WBC) Count 21.1 thou/uL (4.8-10.8)
--- NOTE | 2020-05-27 10:24 | RAD ---
XR Chest 1 View Portable History: Altered mental status Comparison: Radiograph 2019 Findings: Heart size is enlarged. Mild scarring within the lingula. No pneumothorax. No effusion. No acute osseous abnormality. Impression: No acute intrathoracic abnormality.
[2020-05-27 10:39] LABS: ALT (SGPT) 19 U/L (8-55); AST (SGOT) 11 U/L (5-34); Albumin 3.8 g/dL (3.5-5.0); Alkaline Phosphatase 84 U/L (40-110); Anion Gap 11 mmol/L (10-20); BUN (Urea Nitrogen) 29 mg/dL (7.0-18.7); Bilirubin, Total 1.1 mg/dL (0.2-1.2); CK (CPK) 47 U/L (29-168); Calc. Creatinine Clearance 0 mL/min (70-130); Calcium 9.1 mg/dL (7.8-10.44); Carbon Dioxide 24 mmol/L (22-29); Chloride 110 mmol/L (98-107); Estimated GFR-MDRD 26; Globulin 3.6 g/dL (2.4-3.5); Glucose 110 mg/dL (70-105); Magnesium 1.9 mg/dL (1.6-2.6); Protein, Total 7.4 g/dL (6.0-8.3); Sodium 141 mmol/L (136-145)
[2020-05-27 10:53] LABS: CKMB 0.9 ng/mL (0-6.6)
[2020-05-27 10:58] LABS: Band 7 % (5-11); Lymphocytes 8 % (21-51); MDiff Complete? YES; Monocytes 5 % (0-10); Neutrophil 80 % (42-75); Platelet Morphology Comment Appears Adequate; RBC Morphology Normal
[2020-05-27 11:19] LABS: Bilirubin Negative (Negative); Blood, Urine Trace (Negative); Clarity Turbid (Clear); Glucose, Urine (Dipstick) Normal (Negative); Ketone, Urine Negative (Negative); Leukocyte Negative Leu/uL (Negative); Nitrite Negative (Negative); Protein, Urine (Dipstick) 100 mg/dL (Neg-Trace); RBC/HPF 0-3 HPF (0-3); Specific Gravity, Urine 1.013 (1.002-1.036); Squamous Epithelial 0-3 HPF (0-3); Urobilinogen Normal mg/dL (Less than 2); WBC/HPF None Seen HPF (0-3); pH, Urine 5.5 (5.0-9.0)
[2020-05-27 11:26] LABS: Bacteria/HPF 1+ HPF (None Seen)
[2020-05-27] MEDS ORDERED: diphenhydrAMINE 25 MG CAP ONE (12:58)
[2020-05-27 13:54] LABS: #Monocytes 1.3 thou/uL (0.11-0.59); #Neutrophils 16.4 thou/uL (1.40-6.50); %Basophils 0.2 % (0.0-1.0); %Eosinophils 0.1 % (0.0-10.0); %Lymphocytes 5.3 % (21.0-51.0); %Neutrophils 87.5 % (42.0-75.0); Hemoglobin 10.9 g/dL (12.0-16.0); Mean Corpuscular HGB CONC 32.6 g/dL (32.0-36.0); Mean Platelet Volume 7.9 fL (7.4-10.4); Platelet Count 225 thou/uL (130-400); RBC Distribution Width 14.2 % (11.5-14.5); Red Blood Cell (RBC) Count 3.74 mill/uL (4.20-5.40); White Blood Cell (WBC) Count 18.8 thou/uL (4.8-10.8)
[2020-05-27] MEDS ORDERED: levETIRAcetam in NS 100 ML ONE (15:39)
[2020-05-27] MEDS ORDERED: Lorazepam 2 MG/ML VIAL ONE (15:39)
[2020-05-27] MEDS ORDERED: cefTRIAXone\\ROCEPHIN 2 GM VIAL ONE (16:21)
[2020-05-27] MEDS ORDERED: Vancomycin 1 GM/200 ML BAG ONE (16:37)
[2020-05-27] MEDS ORDERED: Labetalol HCl 100 MG/20 ML VIAL ONE (16:37)
--- NOTE | 2020-05-27 16:56 | PDOC.HHP ---
Hospitalist HPI - History of Present Illness Altered mental status History of Present Illness: This is a 49-year-old female with a history of syncope, seizure, hypertension, heart failure with reduced ejection fraction, stage III CKD and morbid obesity who presented today after a fall with subsequent altered mental status. She was brought to the ED for further evaluation. She was brought in by ambulance. Mother found her she was combative saturation 96% on room air with blood pressure 210/90. I went in to evaluate her after she has been initially managed by the ED physician was planning to discharge her when she had a witnessed tonic-clonic epileptic seizure. She did not fall or hit her head as nurses were in place to hold her. This lasted for about 5 minutes and she was postictal at the time of my assessment. She did not have any memory of the seizure, she was confused and could hardly answer any of my questions At presentation her BP was 210/110, pulse 80, temperature 97.8, respiratory rate 19 saturation 100% on room air. Labs showed a troponin of 0.05 around her baseline, WBC 18.8, hemoglobin 10.9, platelets 225. Creatinine was 2.3. CT scan of the head showed no acute intracranial process She was assessed to have cellulitis of her left lower limb by ED physician and was started on vancomycin and ceftriaxone. However after the seizure activity she was given a load of levetiracetam and lorazepam. With persistent elevated blood pressures also received labetalol IV 10 mg. Decision was made to admit her Hospitalist ROS - Review of Systems ROS unobtainable: due to mental status - Medication Medications: Kindly refer to ambulatory medication list. No known drug allergies Hospitalist History - Past Medical History Cardiac: reports: HTN, Syncope Other Medical History: CKD, seizure disorder, hypertension, syncope - Past Surgical History Other Surgical History: Unable to determine - Family History Other Family History: No information - Social History Drugs: reports: marijuana Living Situation: With Family - Exam General - other findings: Patient awake, disoriented. No acute distress. Eye: PERRL, anicteric sclera ENT: normocephalic atraumatic, no oropharyngeal lesions Heart: RRR, no murmur, no gallops, no rubs, normal peripheral pulses Respiratory: no wheezes, no rales, no ronchi, no tachypnea Gastrointestinal: soft, non-tender, non-distended, normal bowel sounds Extremities: no cyanosis, no clubbing, no edema Neurological: cranial nerve grossly intact Psychiatric - other findings: Oriented to self. Not place and time. Hospitalist Results - Labs Result Diagrams: 05/27/20 17:57 05/27/20 09:57 Lab results: WBC 18.8 thou/uL (4.8-10.8) H 05/27/20 13:20 Hgb 10.9 g/dL (12.0-16.0) L 05/27/20 13:20 Hct 33.3 % (36.0-47.0) L 05/27/20 13:20 MCV 89.0 fL (78.0-98.0) 05/27/20 13:20 Plt Count 225 thou/uL (130-400) 05/27/20 13:20 Neutrophils % 87.5 % (42.0-75.0) H 05/27/20 13:20 Band Neuts % (Manual) 7 % (5-11) 05/27/20 09:57 Sodium 141 mmol/L (136-145) 05/27/20 09:57 Potassium 4.0 mmol/L (3.5-5.1) 05/27/20 09:57 Chloride 110 mmol/L (98-107) H 05/27/20 09:57 Carbon Dioxide 24 mmol/L (22-29) 05/27/20 09:57 BUN 29 mg/dL (7.0-18.7) H 05/27/20 09:57 Creatinine 2.38 mg/dL (0.6-1.1) H 05/27/20 09:57 Glucose 110 mg/dL (70-105) H 05/27/20 09:57 Calcium 9.1 mg/dL (7.8-10.44) 05/27/20 09:57 Total Bilirubin 1.1 mg/dL (0.2-1.2) 05/27/20 09:57 AST 11 U/L (5-34) 05/27/20 09:57 ALT 19 U/L (8-55) 05/27/20 09:57 Alkaline Phosphatase 84 U/L (40-110) 05/27/20 09:57 Ammonia 13 umol/L (18-72) L 05/27/20 09:57 Creatine Kinase 47 U/L (29-168) 05/27/20 09:57 CK-MB (CK-2) 0.9 ng/mL (0-6.6) 05/27/20 09:57 Troponin I 0.050 ng/mL (< 0.028) H 05/27/20 13:20 Serum Total Protein 7.4 g/dL (6.0-8.3) 05/27/20 09:57 Albumin 3.8 g/dL (3.5-5.0) 05/27/20 09:57 Urine Ketones Negative mg/dL (Negative) 05/27/20 10:59 Urine Blood Trace (Negative) A 05/27/20 10:59 Urine Nitrite Negative (Negative) 05/27/20 10:59 Ur Leukocyte Esterase Negative Wesley/uL (Negative) 05/27/20 10:59 Urine RBC 0-3 HPF (0-3) 05/27/20 10:59 Urine WBC None Seen HPF (0-3) 05/27/20 10:59 Ur Squamous Epith Cells 0-3 HPF (0-3) 05/27/20 10:59 Urine Bacteria 1+ HPF (None Seen) A 05/27/20 10:59 Hospitalist H&P A/P - Plan Plan: This is a 49-year-old female patient with a history of hypertension and seizure disorder who presented to the ED after a fall and had a seizure activity while in the ED. she will be managed initially in ICU for hypertensive emergency Acute encephalopathy Likely secondary to seizure in the setting of possible hypertensive encephalopathy CT scan on presentation was negative We will monitor and repeat CT scan or MRI if necessary. We will check TSH B12 Urine drug screen Monitor on neuro floor. Seizure disorder Patient had active seizure in ED. Started on Kepprawe will continue Control blood pressure Neurology consult. Fall Patient fell prior to presentation Syncope versus mechanical fall Have heart failure with reduced EF Unclear the detailspossible syncope/seizure We will monitor on telemetry Neurochecks May need AICD Fall precautions Heart failure with reduced ejection fraction EF a year ago was 40 to 45%. Repeat echo in the morningcardiology consult if EF remains reduced IV Lasix for now Monitor BMP Hypertensive emergency Systolic blood pressures were 200 presentation Had associated seizure activity Start home blood pressure medications As needed hydralazine/labetalol Nicardipine drip Admit to CCU for monitoring overnight BP monitoring. Cellulitis of left leg. Cellulitis is nonpurulent Leukocytosis of 21 Received Vanco and Zosyn We will continue with ceftriaxone CKD This has been stable We will continue monitoring. Normocytic anemia Likely secondary to CKD Monitor hemoglobin. Elevated troponin Troponin 0 0.064 on baseline Continue monitoring. VT prophylaxisLovenox CODE STATUSfull code
[2020-05-27 17:15] LABS: Troponin I 0.076 ng/mL (< 0.028)
[2020-05-27] MEDS ORDERED: Furosemide 40 MG/4 ML VIAL SLOW IVP SCH ×2 (18:15→20:00)
[2020-05-27] MEDS ORDERED: cloNIDine 0.1 MG TAB PO PRN (18:16)
[2020-05-27 18:21] LABS: Mean Corpuscular HGB CONC 31.1 g/dL (32.0-36.0); Mean Corpuscular Hemoglobin 27.5 pg (27.0-31.0); Mean Corpuscular Volume 88.3 fL (78.0-98.0); Mean Platelet Volume 7.9 fL (7.4-10.4); Platelet Count 214 thou/uL (130-400); RBC Distribution Width 14.1 % (11.5-14.5); Red Blood Cell (RBC) Count 3.66 mill/uL (4.20-5.40); White Blood Cell (WBC) Count 17.5 thou/uL (4.8-10.8)
[2020-05-27] MEDS ORDERED: niCARdipine 25 MG in Sodium Chloride 0.9% 250 ML 240 ML IVPB SCH (18:30)
[2020-05-27] MEDS ORDERED: niCARdipine 25 MG in Sodium Chloride 0.9% 250 ML 250 ML IVPB SCH (18:30)
[2020-05-27 18:44] LABS: Band 8 % (5-11); Lymphocytes 8 % (21-51); MDiff Complete? YES; Monocytes 9 % (0-10); Neutrophil 75 % (42-75); Platelet Morphology Comment Appears Adequate; Polychromasia SLIGHT = 2-3 cells (100X) (0-2/hpf)
[2020-05-27] MEDS ORDERED: Amlodipine 10 MG TAB PO SCH (19:00)
[2020-05-27] MEDS ORDERED: Furosemide 20 MG TAB PO SCH (19:00)
[2020-05-27] MEDS ORDERED: cloNIDine 0.1mg/24 Hour PATCH TD SCH (19:00)
[2020-05-27 19:48] LABS: Troponin I 0.072 ng/mL (< 0.028)
[2020-05-27 20:00] LABS: Amphetamine Not Detected (NotDetected); Barbiturates Screen Not Detected (NotDetected); Benzodiazepine Screen Not Detected (NotDetected); Cocaine Metabolite Screen Not Detected (NotDetected); Medtox Control Line Valid? VALID (VALID); Medtox Reader # READER 1; Methadone Not Detected (NotDetected); Methamphetamine Not Detected (NotDetected); Opiate Screen Not Detected (NotDetected); Oxycodone Screen Not Detected (NotDetected); Phencyclidine (PCP) Not Detected (NotDetected); THC/Cannabinoid Screen Detected (NotDetected); Tricyclic Screen Not Detected (NotDetected)
[2020-05-27] MEDS ORDERED: Nitroglycerin 2% Ointment 1 INCH/1 GM Packet ONE (22:02)
[2020-05-27] MEDS ORDERED: NIFEdipine XL 60 MG TAB PO SCH (22:15)
[2020-05-27] MEDS ORDERED: niCARdipine 20MG In NaCl 20 MG/200 ML BAG ONE ×2 (22:16→23:27)
[2020-05-28] MEDS ORDERED: niCARdipine 20MG In NaCl 20 MG/200 ML BAG ONE (00:47)
[2020-05-28] MEDS ORDERED: Labetalol HCl 100 MG/20 ML VIAL ONE (01:00)
[2020-05-28 02:27] VITALS: BMI 46.4
[2020-05-28] MEDS: niCARdipine 50 MG in Sodium Chloride 0.9% 250 ML 230 ML IV PRN ×2 (02:36→06:20)
[2020-05-28] MEDS ORDERED: Amlodipine 10 MG TAB PO SCH ×2 (02:45→09:00)
[2020-05-28] MEDS: hydrALAZINE 25 MG TAB PO SCH ×4 (02:58→20:25)
[2020-05-28 04:08] LABS: Anion Gap 16 mmol/L (10-20); BUN (Urea Nitrogen) 26 mg/dL (7.0-18.7); Calc. Creatinine Clearance 57 mL/min (70-130); Calcium 9.1 mg/dL (7.8-10.44); Carbon Dioxide 18 mmol/L (22-29); Chloride 108 mmol/L (98-107); Estimated GFR-MDRD 29; Glucose 124 mg/dL (70-105); Potassium 3.7 mmol/L (3.5-5.1); Sodium 138 mmol/L (136-145)
[2020-05-28] MEDS: Acetaminophen 500 MG TAB PO PRN ×2 (06:49→20:29)
[2020-05-28] MEDS: Aspirin Chewable 81 MG TAB PO SCH (08:40)
[2020-05-28] MEDS: Amlodipine 10 MG TAB PO SCH (08:40)
[2020-05-28] MEDS: levETIRAcetam 500 MG TAB PO SCH ×2 (08:46→20:25)
[2020-05-28] MEDS ORDERED: hydrALAZINE 25 MG TAB PO SCH (09:00)
[2020-05-28] MEDS ORDERED: Furosemide 20 MG TAB PO SCH ×2 (09:00)
--- NOTE | 2020-05-28 10:41 | CON ---
DATE OF CONSULTATION: HISTORY OF PRESENT ILLNESS: Marine Pickard is a 49-year-old obese female, who presented to the ER with altered mental status. She has known history of seizure disorder. It is unclear whether she took a medicine at the time of admission or day before admission. Sats are 100%, pulse 80, respiratory rate 19, blood pressure was elevated to 210/110. In fact, it does not look like she took any of her medication. They were told when she had a witnessed seizure activity apparently in the ER, she was given some Keppra. She is in ICU because she is on a hypertensive Cardene drip. This morning, she is awake, alert, and responsive. Denies any pain or discomfort. She has been smoking marijuana on a regular basis daily, she tells me. PAST MEDICAL HISTORY: Otherwise, pertinent for hypertension, chronic renal failure, possibly previous TIA. PREVIOUS SURGERIES: None recently. ALLERGIES: NONE. REVIEW OF SYSTEMS: Otherwise, unremarkable. PHYSICAL EXAMINATION: GENERAL: Awake, alert, responsive, in no distress. VITAL SIGNS: Blood pressure is 140/80, on a Cardene drip; pulse 80; respiratory rate 18; afebrile. NEUROLOGIC: Awake, alert, responsive. Neurologically, she moves all 4 extremities very appropriate. CHEST: No wheezing. No crackles. CARDIAC: Normal S1, S2. No gallops. ABDOMEN: Soft. LABORATORY STUDIES: White count 17,000, H and H 10 and 30, platelet count 214. Creatinine 2, BUN is 26. IMPRESSION: 1. Uncontrolled hypertension, poor compliance. 2. Chronic renal failure. 3. Seizure activity, noncompliance with medication, morbid obesity, daily marijuana use. PLAN: We will start her on home medication. Otherwise, once she is off the Cardene, she can be transferred out of the ICU. Await input from Neurology. This is a consultation note, 70 minutes, 50% direct patient care. Job ID: [id number]
[2020-05-28 12:01] LABS: SARS-CoV-2 MS2 Positive; SARS-CoV-2 N Gene Negative; SARS-CoV-2 S Gene Negative; SARS-CoV-2 by NAA Not Detected (NotDetected); SARS-CoV-2 orf1ab Negative
[2020-05-28] MEDS ORDERED: cefTRIAXone\\ROCEPHIN 1 GM in Sodium Chloride 0.9% 100 ML IVPB SCH (12:30)
--- NOTE | 2020-05-28 13:16 | CON ---
NEUROLOGY CONSULTATION DATE OF CONSULTATION: 05/28/2020 REASON FOR CONSULTATION: Altered mental status. HISTORY OF PRESENT ILLNESS: Ms. Pickard is a 49-year-old female with history significant for syncope, seizure disorder, hypertension, heart failure with reduced ejection fraction, stage 3 kidney disease, and morbid obesity, presented to the hospital after a fall and altered mental status. The patient was brought to the emergency room for further evaluation by an ambulance. Mother found her to be combative with blood pressure over 210/90. In the emergency room, she had a generalized tonic-clonic seizure which lasted for about 5 minutes. She was given Ativan and loaded with Keppra and admitted to the CCU for further evaluation. A CT scan was done, which did not reveal any acute intracranial pathology. She was also found to have cellulitis of her left lower limb. Per patient, she has been compliant with the medication but for the last 2 to 3 days she was not feeling well and was nauseous, so she did not take any medicines for the last 2 to 3 days. She takes Keppra 500 mg twice daily at home. The patient denies nausea, vomiting, headache, chest pain, abdominal pain, focal weakness, focal paresthesias, vertigo, double vision, loss of vision at this time. REVIEW OF SYSTEMS: all systems were reviewed and were negative except the pertinent positives and negatives mentioned in the HPI. MEDICATIONS: Per patient, she takes 1. Aspirin. 2. Cholesterol medication. 3. Keppra at home. ALLERGIES: ATROVASTATIN. PAST MEDICAL HISTORY: Hypertension, heart failure, syncope, seizure disorder, chronic kidney disease. PAST SURGICAL HISTORY: Not significant. FAMILY HISTORY: No family history of seizures. SOCIAL HISTORY: Patient lives with the family. Smokes marijuana. PHYSICAL EXAMINATION: General - other findings: Patient awake Eye: PERRL, anicteric sclera ENT: normocephalic atraumatic, no oropharyngeal lesions Heart: RRR, no murmur, no gallops, no rubs, normal peripheral pulses Respiratory: no wheezes, no rales, no ronchi, no tachypnea Gastrointestinal: soft, non-tender, non-distended, normal bowel sounds Extremities: no cyanosis, no clubbing, no edema Neurological: Mental status: The patient is alert and oriented to person, place, and time. Speech is clear. Motor: Muscle tone and bulk are normal. Strength 5/5 bilaterally. Sensory intact. Cerebellar: Finger-nose testing intact. Cranial nerves 2 through 12 intact. Gait deferred due to patient's safety reason. DATA REVIEWED: Reviewed the labs which were significant for leukocytosis 17.5, and anemia with hemoglobin of 10 and hematocrit of 32.3 and chronic kidney disease with BUN of 29 and creatinine of 2.38 and mild hyperglycemia of 110. Head CT reviewed, which was negative for acute intracranial pathology. Lab results: WBC 18.8 thou/uL (4.8-10.8) H 05/27/20 13:20 Hgb 10.9 g/dL (12.0-16.0) L 05/27/20 13:20 Hct 33.3 % (36.0-47.0) L 05/27/20 13:20 MCV 89.0 fL (78.0-98.0) 05/27/20 13:20 Plt Count 225 thou/uL (130-400) 05/27/20 13:20 Neutrophils % 87.5 % (42.0-75.0) H 05/27/20 13:20 Band Neuts % (Manual) 7 % (5-11) 05/27/20 09:57 Sodium 141 mmol/L (136-145) 05/27/20 09:57 Potassium 4.0 mmol/L (3.5-5.1) 05/27/20 09:57 Chloride 110 mmol/L (98-107) H 05/27/20 09:57 Carbon Dioxide 24 mmol/L (22-29) 05/27/20 09:57 BUN 29 mg/dL (7.0-18.7) H 05/27/20 09:57 Creatinine 2.38 mg/dL (0.6-1.1) H 05/27/20 09:57 Glucose 110 mg/dL (70-105) H 05/27/20 09:57 Calcium 9.1 mg/dL (7.8-10.44) 05/27/20 09:57 Total Bilirubin 1.1 mg/dL (0.2-1.2) 05/27/20 09:57 AST 11 U/L (5-34) 05/27/20 09:57 ALT 19 U/L (8-55) 05/27/20 09:57 Alkaline Phosphatase 84 U/L (40-110) 05/27/20 09:57 Ammonia 13 umol/L (18-72) L 05/27/20 09:57 Creatine Kinase 47 U/L (29-168) 05/27/20 09:57 CK-MB (CK-2) 0.9 ng/mL (0-6.6) 05/27/20 09:57 Troponin I 0.050 ng/mL (< 0.028) H 05/27/20 13:20 Serum Total Protein 7.4 g/dL (6.0-8.3) 05/27/20 09:57 Albumin 3.8 g/dL (3.5-5.0) 05/27/20 09:57 Urine Ketones Negative mg/dL (Negative) 05/27/20 10:59 Urine Blood Trace (Negative) A 05/27/20 10:59 Urine Nitrite Negative (Negative) 05/27/20 10:59 Ur Leukocyte Esterase Negative Wesley/uL (Negative) 05/27/20 10:59 Urine RBC 0-3 HPF (0-3) 05/27/20 10:59 Urine WBC None Seen HPF (0-3) 05/27/20 10:59 Ur Squamous Epith Cells 0-3 HPF (0-3) 05/27/20 10:59 Urine Bacteria 1+ HPF (None Seen) A 05/27/20 10:59 ASSESSMENT AND PLAN: Ms. Marine Pickard is a 49-year-old female with medical history significant for hypertension, heart failure, seizure disorder, and chronic kidney disease, morbid obesity, presented with altered mental status and breakthrough seizure in the emergency room. Altered mental status most likely secondary to seizure activity due to missing the doses of medications for the last 2 days in the setting of hypertensive encephalopathy since the patient has not taken any of her home medications including anticonvulsants or blood pressure medications for the last 48 hours prior to arrival to the emergency room. She is at her baseline after Keppra load. EEG to assess cortical irritability as it may help with adjustment of the medications. Continue Keppra 500 mg twice daily. Observe seizure precautions. Neuro checks every 4 hours. Ativan 2 mg IV for seizure greater than 2 minutes. Continue telemetry. Repeat echo and consider Cardiology input regarding heart failure. Continue home medications. Continue medical management per primary team, PT/OT/speech, DVT prophylaxis. We will continue to follow. Thank you for the consult. Job ID: [id number] MTDD
--- NOTE | 2020-05-28 15:59 | PDOC.EEG ---
Neurology EEG Report - Report Report: This EEG was performed using 24 channel Tittat video digital EEG machine with 24 disc electrodes. This was an extended 2 hours 6minutes of EEG recording. Digital analysis of the EEG was done for Edilberto and seizure detection which revealed no abnormalities. Background: The posterior background rhythm is 8-10 Hz. Excessive beta activity seen during the recording. Photic stimulation: No response seen with photic stimulation. Hyperventilation: Not performed. Sleep: Drowsiness and sleep observed. EEG diagnosis: Occasional irregular theta activity seen throughout the recording intermixed with rare spikes. Clinical interpretation: This EEG is consistent with interictal expression of epilepsy in the setting of mild generalized nonspecific cerebral dysfunction.
[2020-05-28] MEDS: Carvedilol 6.25 MG TAB PO SCH (17:34)
[2020-05-28] MEDS ORDERED: FLU VACC QS2020-21(6MOS UP)/PF 60 MCG/0.5 ML SYRINGE IM ONE (21:00)
--- NOTE | 2020-05-28 23:45 | PDOC.HOSPP ---
- Subjective Encounter Date: 05/28/20 Encounter Time: 13:30 Subjective: Patient seen and examined for encephalopathy with hypertensive rices and seizure. No new episode of seizure. No chest pain, palpitations or syncope. - Objective Vital Signs & Weight: Vital Signs (12 hours) Temp Pulse Resp BP BP Pulse Ox 05/28/20 20:25 76 117/73 05/28/20 17:34 136/74 05/28/20 15:20 78 137/76 05/28/20 13:36 97.8 F 92 20 135/76 100 05/28/20 12:00 98.2 F 05/28/20 11:46 163/96 H Weight Weight 253 lb 15.56 oz Most Recent Monitor Data Heart Rate from ECG 80 NIBP 154/88 NIBP BP-Mean 110 Respiration from ECG 18 SpO2 95 I&O: 05/27/20 05/28/20 05/29/20 06:59 06:59 06:59 Intake Total 1030 300 Output Total 575 0 Balance 455 300 Result Diagrams: 05/27/20 17:57 05/28/20 03:36 Radiology Reviewed by me: Yes (Chest x-raynegative for infiltrate) EKG Reviewed by me: Yes (Sinus rhythm on telemetry earlier) Hospitalist ROS - Review of Systems Respiratory: denies: cough, dry, shortness of breath, hemoptysis, SOB with excertion, pleuritic pain, sputum, wheezing, other Cardiovascular: denies: chest pain, palpitations, orthopnea, paroxysmal noc. dys pnea, edema, light headedness, other - Medication Medications: Active Medications Generic Name Dose Route Start Last Admin Trade Name Freq PRN Reason Stop Dose Admin Acetaminophen 1,000 mg 05/28/20 06:35 05/28/20 20:29 Acetaminophen 500 Mg Tab PO 1,000 mg Q6H PRN Administration Mild Pain (1-3) Amlodipine Besylate 10 mg 05/28/20 09:00 05/28/20 08:40 Amlodipine 10 Mg Tab PO 10 mg DAILY KAREN Administration Aspirin 81 mg 05/28/20 09:00 05/28/20 08:40 Aspirin Chewable 81 Mg Tab PO 81 mg DAILY KAREN Administration Carvedilol 6.25 mg 05/28/20 17:00 05/28/20 17:34 Carvedilol 6.25 Mg Tab PO 6.25 mg BID-WM KAREN Administration Clonidine 0.1 mg 05/27/20 18:16 05/28/20 11:46 Clonidine 0.1 Mg Tab PO 0.1 mg Q8H PRN Administration SBP Greater Than 180 Hydralazine HCl 25 mg 05/27/20 21:00 05/28/20 20:25 Hydralazine 25 Mg Tab PO 25 mg TID KAREN Administration Ceftriaxone Sodium 1 gm/ 100 mls @ 200 mls/hr 05/28/20 12:30 05/28/20 11:36 Sodium Chloride IVPB 100 mls Q24HR KAREN Administration Nicardipine HCl 50 mg/ Sodium 250 mls @ 0 mls/hr 05/28/20 02:30 05/28/20 06:20 Chloride IV 250 mls INF PRN Administration TITRATE TO KEEP SBP < 140 Protocol As Directed Levetiracetam 500 mg 05/28/20 09:00 05/28/20 20:25 Levetiracetam 500 Mg Tab PO 500 mg BID KAREN Administration Sodium Chloride 10 ml 05/28/20 09:00 05/28/20 20:26 Flush - Normal Saline 10 Ml Syringe IVF Not Given Q12HR KAREN - Exam General Appearance: NAD Neck: supple, no JVD Heart: RRR, no gallops, no rubs, normal peripheral pulses Respiratory: no wheezes, no rales, no ronchi, normal chest expansion Gastrointestinal: soft, non-tender, normal bowel sounds, no guarding, no rigidi ty Extremities: no cyanosis, no clubbing Neurological: no new deficit Musculoskeletal: generalized weakness Psychiatric: normal affect, A&O x 3 Hosp A/P - Plan DVT proph w/SCDs Acute encephalopathy due to seizure/uncontrolled hypertension Breakthrough seizure due to medication noncompliance ? Left leg cellulitison ceftriaxone Hypertensive crisis requiring Cardene drip CKD stage III morbid obesity with a BMI of 46.3 Chronic anemia suspected due to nutritional deficiency Cannabis abuse Hypertensive heart disease Plan: Patient currently off Cardene drip. Home medications have been restarted including amlodipine and hydralazine. Keppra restarted. Continue close monitoring. Ambulate. EEG pending. DC planning. Await echocardiogram. Continue ceftriaxone. Continue other medications as above.
[2020-05-29 05:20] VITALS: TEMP 97.7
[2020-05-29 06:49] LABS: #Eosinphils 0.2 thou/uL (0.0-0.7); #Lymphocytes 1.5 thou/uL (1.20-3.40); #Monocytes 0.9 thou/uL (0.11-0.59); #Neutrophils 9.6 thou/uL (1.40-6.50); %Basophils 0.2 % (0.0-1.0); %Eosinophils 1.9 % (0.0-10.0); %Lymphocytes 12.5 % (21.0-51.0); %Monocytes 6.9 % (0.0-10.0); %Neutrophils 78.6 % (42.0-75.0); Hemoglobin 10.5 g/dL (12.0-16.0); Mean Corpuscular HGB CONC 32.9 g/dL (32.0-36.0); Mean Corpuscular Hemoglobin 29.1 pg (27.0-31.0); Mean Corpuscular Volume 88.6 fL (78.0-98.0); Platelet Count 233 thou/uL (130-400); RBC Distribution Width 14.1 % (11.5-14.5); White Blood Cell (WBC) Count 12.2 thou/uL (4.8-10.8)
[2020-05-29 07:10] LABS: ALT (SGPT) 14 U/L (8-55); AST (SGOT) 11 U/L (5-34); Albumin 3.7 g/dL (3.5-5.0); Alkaline Phosphatase 83 U/L (40-110); Anion Gap 16 mmol/L (10-20); BUN (Urea Nitrogen) 24 mg/dL (7.0-18.7); Bilirubin, Total 0.9 mg/dL (0.2-1.2); Calc. Creatinine Clearance 57 mL/min (70-130); Carbon Dioxide 19 mmol/L (22-29); Chloride 110 mmol/L (98-107); Estimated GFR-MDRD 29; Globulin 3.7 g/dL (2.4-3.5); Glucose 97 mg/dL (70-105); Potassium 3.7 mmol/L (3.5-5.1); Protein, Total 7.4 g/dL (6.0-8.3); Sodium 141 mmol/L (136-145)
[2020-05-29] MEDS: Aspirin Chewable 81 MG TAB PO SCH (08:12)
[2020-05-29] MEDS: hydrALAZINE 25 MG TAB PO SCH (08:12)
[2020-05-29] MEDS: Amlodipine 10 MG TAB PO SCH (08:14)
[2020-05-29] MEDS: levETIRAcetam 500 MG TAB PO SCH (08:14)
[2020-05-29] MEDS: Carvedilol 6.25 MG TAB PO SCH (08:14)
[2020-05-29 08:17] VITALS: BP 138/86
--- NOTE | 2020-05-29 16:52 | DIS ---
DATE OF ADMISSION: 05/27/2020 DATE OF DISCHARGE: 05/29/2020 DISCHARGE DISPOSITION: To home. PRIMARY DISCHARGE DIAGNOSES: 1. Hypertensive emergency on arrival, resolved. 2. Breakthrough seizure, resolved. 3. Acute encephalopathy secondary to seizure, resolved. 4. Left lower extremity cellulitis. SECONDARY DISCHARGE DIAGNOSES: 1. Chronic anemia. 2. Morbid obesity. 3. Chronic kidney disease, stage 3. PROCEDURES DONE DURING HOSPITALIZATION: H and H 10 and 31. BUN and creatinine 24 and 2.1. Echo done, showed ejection fraction of 55% with moderate LVH. EEG done, showed findings consistent with interictal expression of epilepsy in the setting of mild generalized nonspecific cerebral dysfunction. Chest x-ray showed no acute intrathoracic abnormality. CT brain without contrast done, showed no acute intracranial abnormality. Blood cultures x2, no growth. DISCHARGE MEDICATIONS: 1. Lasix 20 mg daily. 2. Hydralazine 25 mg 3 times daily. 3. Aspirin 81 mg daily. 4. Coreg 6.25 mg twice daily. 5. Keflex 500 mg p.o. twice daily for 10 days for left lower extremity cellulitis. 6. Keppra 500 mg twice daily. 7. Norvasc 10 mg daily. ALLERGIES: TO ATORVASTATIN. DISCHARGE PLAN: The patient to follow up with Dr. Ren, her neurologist in 1 week and her primary care physician, Dr. Brush in 1 week. BRIEF COURSE DURING HOSPITALIZATION: The patient initially got admitted on the with history of fall and subsequent altered mental state. Her initial blood pressure was 210/90. The patient also had an episode of tonic colonic seizure in the ER. She was initially admitted to ICU on Cardene drip, which was later discontinued after oral medications were instituted. Her encephalopathy completely resolved with no further seizures. She has had consultation with Dr. Munoz for Neurology. The patient had known history of seizure and was placed back on Keppra. She has not had any further seizure episodes. The patient was later downgraded to medical floor. She still has left lower extremity cellulitis with a small healing ulcer and was advised to continue Keflex for 10 days. She is wanting to go home today. She has otherwise remained hemodynamically and neurologically stable. All her medications have been faxed to her pharmacy. She was strongly counseled to follow up with Dr. Ren in 10 days and primary care physician in 1 week. Please note, I have seen and examined the patient on the day of discharge. Job ID: [id number] MTDD
[2020-06-03] MEDS ORDERED: cloNIDine 0.1mg/24 Hour PATCH TD SCH (19:00)
--- NOTE | 2020-06-05 11:45 | EKG ---
Test Reason : Blood Pressure : / mmHG Vent. Rate : 070 BPM Atrial Rate : 070 BPM P-R Int : 192 ms QRS Dur : 098 ms QT Int : 416 ms P-R-T Axes : 055 001 103 degrees QTc Int : 449 ms Normal sinus rhythm Possible Left atrial enlargement Left ventricular hypertrophy T wave abnormality, consider lateral ischemia Abnormal ECG Confirmed by DALIA MAE M.D. ([id number]), purchasing expeditor ROS TOPETE ([id number]) on 06/05/2020 11:45:25 AM Referred By: Confirmed By:DALIA MAE M.D.
== END 2020-05-29 09:20 | disposition home or self-care (01) | DRG 78 ==
LOC: ERS 09:35 → CCU 16:21 → T4-A 05-28 13:07
PROVIDERS: ADMIT Student in an Organized Health Care Education/Training Program; ATTEND Internal Medicine
DX: I67.4 Hypertensive encephalopathy (principal); I16.1 Hypertensive emergency; L03.116 Cellulitis of left lower limb; Z68.42 Body mass index [BMI] 45.0-49.9, adult; I50.22 Chronic systolic (congestive) heart failure; N18.30 Chronic kidney disease, stage 3 unspecified; E66.01 Morbid (severe) obesity due to excess calories; D63.1 Anemia in chronic kidney disease; G40.409 Other generalized epilepsy and epileptic syndromes, not intractable, without status epilepticus; E78.5 Hyperlipidemia, unspecified; E11.22 Type 2 diabetes mellitus with diabetic chronic kidney disease; F41.9 Anxiety disorder, unspecified; F32.9 Major depressive disorder, single episode, unspecified; F12.10 Cannabis abuse, uncomplicated; Z20.828 Contact with and (suspected) exposure to other viral communicable diseases; I13.10 Hypertensive heart and chronic kidney disease without heart failure, with stage 1 through stage 4 chronic kidney disease, or unspecified chronic kidney disease; Z28.21 Immunization not carried out because of patient refusal; Z91.14 Patient's other noncompliance with medication regimen; Z79.899 Other long term (current) drug therapy; Z79.82 Long term (current) use of aspirin
CPT/HCPCS: 36415; 36416; 51701; 70450; 71045; 80048; 80053; 80177; 80306; 81003; 81015; 82140; 82550; 82553; 83605; 83735; 84443; 84484; 85025; 87040; 87635; 93005; 93306; 95712; 95819; 95957; 96365; 96366; 96367; 96375; 96376; J0696; J1953; J2060; J3370; J3490; J7050; Q0163; U0003

== ENCOUNTER 2020-11-29 21:34 | Emergency (ER) | payer OTHER ==
[2020-11-29] MEDS ORDERED: HYDROcodone/Acetaminophen 10/325 mg Tablet ONE (23:57)
== END 2020-11-30 00:22 | disposition home or self-care (01) ==
LOC: ERS 21:34
DX: S80.12XA Contusion of left lower leg, initial encounter (principal); E11.9 Type 2 diabetes mellitus without complications; E78.5 Hyperlipidemia, unspecified; Z87.891 Personal history of nicotine dependence; Z79.82 Long term (current) use of aspirin; Z79.899 Other long term (current) drug therapy; X58.XXXA Exposure to other specified factors, initial encounter

== ENCOUNTER 2021-03-16 | Emergency (ER) | payer OTHER | END 2021-03-16 05:05 | disposition home or self-care (01) ==

== ENCOUNTER 2021-04-19 15:59 | Emergency (ER) | payer OTHER | END 2021-04-19 17:35 | disposition home or self-care (01) | LOC: ERS 15:59 | DX: R56.9 Unspecified convulsions (principal); E11.9 Type 2 diabetes mellitus without complications; I10 Essential (primary) hypertension; E78.5 Hyperlipidemia, unspecified; Z86.73 Personal history of transient ischemic attack (TIA), and cerebral infarction without residual deficits; Z87.891 Personal history of nicotine dependence; Z79.899 Other long term (current) drug therapy | CPT/HCPCS: 93005 ==

== ENCOUNTER 2021-07-07 23:26 | Emergency (ER) | payer MEDICARE, OTHER | END 2021-07-08 00:30 | disposition home or self-care (01) | LOC: ERS 23:26 | DX: R56.9 Unspecified convulsions (principal); I10 Essential (primary) hypertension; E11.9 Type 2 diabetes mellitus without complications; E78.5 Hyperlipidemia, unspecified; E66.9 Obesity, unspecified; Z87.891 Personal history of nicotine dependence; Z79.899 Other long term (current) drug therapy; W08.XXXA Fall from other furniture, initial encounter | CPT/HCPCS: 99284 ==

== ENCOUNTER 2021-07-11 09:01 | Outpatient (CLI) | payer MEDICARE, OTHER | END 2021-07-11 09:02 | disposition home or self-care (01) | LOC: BICMAMMO 09:01 | PROVIDERS: ATTEND Nurse Practitioner Women's Health | DX: N63.11 Unspecified lump in the right breast, upper outer quadrant (principal) | CPT/HCPCS: 76642; 77066; G0279 ==

== ENCOUNTER → 2021-07-12 | Day surgery (SDC) | payer MEDICARE, OTHER | LOC: BICULT 12:37 | PROVIDERS: ATTEND Nurse Practitioner Women's Health | PROC: 0H9T3ZX Drainage of Right Breast, Percutaneous Approach, Diagnostic (ICD-10-PCS; principal; 2021-07-12) | DX: C50.411 Malignant neoplasm of upper-outer quadrant of right female breast (principal); Z88.8 Allergy status to other drugs, medicaments and biological substances | CPT/HCPCS: 19083; 88305 ==

== ENCOUNTER 2021-07-20 11:43 | Emergency (ER) | payer MEDICARE, OTHER ==
[2021-07-20 13:09] LABS: #Eosinphils 0.1 thou/uL (0.0-0.7); #Lymphocytes 1.3 thou/uL (1.20-3.40); #Monocytes 0.5 thou/uL (0.11-0.59); #Neutrophils 6.6 thou/uL (1.40-6.50); %Basophils 0.4 % (0.0-1.0); %Eosinophils 1.4 % (0.0-10.0); %Lymphocytes 15.2 % (21.0-51.0); %Monocytes 6.1 % (0.0-10.0); %Neutrophils 76.9 % (42.0-75.0); Hemoglobin 10.3 g/dL (12.0-16.0); Mean Corpuscular HGB CONC 31.3 g/dL (32.0-36.0); Mean Corpuscular Hemoglobin 28.7 pg (27.0-31.0); Mean Corpuscular Volume 91.7 fL (78.0-98.0); Mean Platelet Volume 7.2 fL (7.4-10.4); Platelet Count 279 thou/uL (130-400); RBC Distribution Width 13.9 % (11.5-14.5); Red Blood Cell (RBC) Count 3.59 mill/uL (4.20-5.40); White Blood Cell (WBC) Count 8.5 thou/uL (4.8-10.8)
[2021-07-20 13:26] LABS: ALT (SGPT) 10 U/L (8-55); AST (SGOT) 11 U/L (5-34); Albumin 3.9 g/dL (3.5-5.0); Alkaline Phosphatase 79 U/L (40-110); Anion Gap 10 mmol/L (10-20); BUN (Urea Nitrogen) 38 mg/dL (9.8-20.1); Bilirubin, Total 0.3 mg/dL (0.2-1.2); Calc. Creatinine Clearance 0 mL/min (70-130); Calcium 9.6 mg/dL (7.8-10.44); Carbon Dioxide 22 mmol/L (22-29); Chloride 112 mmol/L (98-107); Glucose 98 mg/dL (70-105); Potassium 4.9 mmol/L (3.5-5.1); Protein, Total 7.9 g/dL (6.0-8.3); Sodium 139 mmol/L (136-145)
[2021-07-20] MEDS ORDERED: levETIRAcetam 500 MG TAB PO SCH (13:45)
== END 2021-07-20 14:20 | disposition home or self-care (01) ==
LOC: ERS 11:43
DX: I12.9 Hypertensive chronic kidney disease with stage 1 through stage 4 chronic kidney disease, or unspecified chronic kidney disease (principal); N18.9 Chronic kidney disease, unspecified; R56.9 Unspecified convulsions; E11.9 Type 2 diabetes mellitus without complications; E78.5 Hyperlipidemia, unspecified; Z87.891 Personal history of nicotine dependence; Z79.899 Other long term (current) drug therapy
CPT/HCPCS: 36415; 80053; 85025; 99284

== ENCOUNTER 2021-07-22 07:33 | Emergency (ER) | payer MEDICARE, OTHER ==
[2021-07-22] MEDS ORDERED: traMADol HCl 50 MG TAB ONE (09:47)
== END 2021-07-22 10:50 | disposition home or self-care (01) ==
LOC: ERS 07:33
DX: M19.072 Primary osteoarthritis, left ankle and foot (principal); E11.9 Type 2 diabetes mellitus without complications; E66.9 Obesity, unspecified; I10 Essential (primary) hypertension; E78.5 Hyperlipidemia, unspecified; Z87.891 Personal history of nicotine dependence

== ENCOUNTER 2021-08-30 10:54 | Outpatient (CLI) | payer MEDICARE, OTHER, MEDICAID ==
[2021-08-30 12:23] LABS: #Eosinphils 0.1 10x3/uL (0.0-0.5); #Monocytes 0.7 10x3/uL (0.0-1.1); #Neutrophils 6.1 10x3/uL (1.5-8.4); %Basophils 0.4 % (0.0-2.0); %Eosinophils 1.6 % (0.0-6.0); %Lymphocytes 21.5 % (18.0-47.0); %Monocytes 7.3 % (0.0-10.0); %Neutrophils 68.4 % (40.0-75.0); Hemoglobin 10.1 g/dL (12.0-15.5); Mean Corpuscular HGB CONC 30.5 g/dL (32.0-36.0); Mean Corpuscular Hemoglobin 27.5 pg (27.0-33.0); Mean Corpuscular Volume 90.2 fl (81.6-98.3); Mean Platelet Volume 9.7 fl (7.4-10.4); Platelet Count 303 10x3/uL (150-450); RBC Distribution Width 14.2 % (11.5-14.5); Red Blood Cell (RBC) Count 3.67 10x6/uL (3.90-5.03); White Blood Cell (WBC) Count 8.9 10x3/uL (3.5-10.5)
[2021-08-30 12:46] LABS: Anion Gap 13 mmol/L (10-20); BUN (Urea Nitrogen) 50 mg/dL (9.8-20.1); Calc. Creatinine Clearance 0 mL/min (70-130); Calcium 9.2 mg/dL (7.8-10.44); Carbon Dioxide 20 mmol/L (22-29); Chloride 113 mmol/L (98-107); Glucose 97 mg/dL (70-105); Potassium 4.4 mmol/L (3.5-5.1); Sodium 142 mmol/L (136-145)
[2021-08-30 19:54] LABS: SARS-CoV-2 PCR by NAA Not Detected (NotDetected)
== END 2021-08-30 10:55 | disposition home or self-care (01) ==
LOC: LABBT 10:54
PROVIDERS: ATTEND Surgery
DX: Z01.818 Encounter for other preprocedural examination (principal); C50.911 Malignant neoplasm of unspecified site of right female breast; Z20.822 Contact with and (suspected) exposure to COVID-19
CPT/HCPCS: 80048; 85025; 93005; U0003; U0005; 93010

== ENCOUNTER 2021-09-02 07:37 | Day surgery (SDC) | payer MEDICARE, OTHER ==
[2021-08-25 09:29] VITALS: BMI 45.4
[2021-09-02] MEDS ORDERED: Acetaminophen 500 MG TAB ONE (09:30)
[2021-09-02] MEDS ORDERED: Bupivacaine 0.25% HCL 30 ML VIAL ONE (11:13)
[2021-09-02] MEDS ORDERED: Xylocaine 1% w/ Epi 1:100K 10 ML VIAL ONE (11:13)
[2021-09-02] MEDS ORDERED: Isosulfan Blue 50 MG/5 ML VIAL ONE (11:13)
[2021-09-02] MEDS ORDERED: ceFAZolin 2 GM/Dextrose 50 ML IVPB ONE (11:34)
[2021-09-02] MEDS ORDERED: Dexamethasone 20 MG/5 ML VIAL ONE (11:44)
[2021-09-02] MEDS ORDERED: Ondansetron PF 4 MG/2 ML Vial ONE (11:44)
[2021-09-02] MEDS ORDERED: PROPOFOL 200 MG/20 ML VIAL ONE (11:44)
[2021-09-02] MEDS ORDERED: Lidocaine 1% PF 5 ML VIAL ONE (11:44)
[2021-09-02] MEDS ORDERED: Succinylcholine 200 MG/10 ml SYRINGE FS ONE (11:44)
== END 2021-09-02 16:00 | disposition home or self-care (01) ==
LOC: SDC 07:37
PROVIDERS: ATTEND Surgery
PROC: 0HBT0ZZ Excision of Right Breast, Open Approach (ICD-10-PCS; principal; 2021-09-02)
PROC: 07B50ZX Excision of Right Axillary Lymphatic, Open Approach, Diagnostic (ICD-10-PCS; 2021-09-02)
DX: C50.411 Malignant neoplasm of upper-outer quadrant of right female breast (principal); I10 Essential (primary) hypertension; Z17.0 Estrogen receptor positive status [ER+]; Z79.899 Other long term (current) drug therapy; Z88.8 Allergy status to other drugs, medicaments and biological substances
CPT/HCPCS: 19301; 38525; 38900; 76098; 78195; A9541; C1776; Q9968; 88305; 88307; 88342; J0690; J1100; J2405; J2704; S0020

== ENCOUNTER 2021-09-30 05:44 | Day surgery (SDC) | payer MEDICARE, OTHER ==
[2021-09-23 11:28] VITALS: BMI 46.6
[2021-09-30] MEDS ORDERED: Acetaminophen 500 MG TAB ONE (06:16)
[2021-09-30] MEDS ORDERED: Ketorolac Tromethamine 30 MG/ML VIAL ONE (06:16)
[2021-09-30] MEDS ORDERED: Bupivacaine 0.25% HCL 30 ML VIAL ONE (06:46)
[2021-09-30] MEDS ORDERED: Xylocaine 1% w/ Epi 1:100K 10 ML VIAL ONE (06:46)
[2021-09-30] MEDS ORDERED: Fentanyl 250 MCG/5 ML VIAL ONE (07:21)
[2021-09-30] MEDS ORDERED: Lidocaine 4% Topical Sol 50 ML BOT ONE (07:21)
[2021-09-30] MEDS ORDERED: Albuterol Sulfate HFA (OR ONLY) ONE (07:21)
[2021-09-30] MEDS ORDERED: ceFAZolin 2 GM/Dextrose 50 ML IVPB ONE (07:40)
[2021-09-30] MEDS ORDERED: PROPOFOL 200 MG/20 ML VIAL ONE (07:58)
[2021-09-30] MEDS ORDERED: Lidocaine 1% PF 5 ML VIAL ONE (07:58)
[2021-09-30] MEDS ORDERED: Ondansetron PF 4 MG/2 ML Vial ONE (07:58)
[2021-09-30] MEDS ORDERED: Dexamethasone 20 MG/5 ML VIAL ONE (07:58)
[2021-09-30] MEDS ORDERED: ePHEDrine 50 MG/ML VIAL ONE (07:58)
== END 2021-09-30 11:03 | disposition home or self-care (01) ==
LOC: SDC 05:44
PROVIDERS: ATTEND Surgery
PROC: 02HV33Z Insertion of Infusion Device into Superior Vena Cava, Percutaneous Approach (ICD-10-PCS; principal; 2021-09-30)
DX: C50.411 Malignant neoplasm of upper-outer quadrant of right female breast (principal); I10 Essential (primary) hypertension; Z17.0 Estrogen receptor positive status [ER+]; Z79.899 Other long term (current) drug therapy; Z88.8 Allergy status to other drugs, medicaments and biological substances
CPT/HCPCS: 36561; 71045; C1713; C1788; J0690; J1100; J1642; J1885; J2405; J2704; J3010; J3490; S0020

== ENCOUNTER 2021-10-01 07:59 | Emergency (ER) | payer MEDICARE, OTHER ==
[2021-10-01] MEDS ORDERED: Cephalexin 250 MG CAP ONE (08:16)
[2021-10-01] MEDS ORDERED: levETIRAcetam 500 MG TAB PO SCH (08:30)
[2021-10-01] MEDS ORDERED: levETIRAcetam in NS 100 ML ONE (09:21)
[2021-10-01] MEDS ORDERED: Lorazepam 2 MG/ML VIAL ONE (09:21)
[2021-10-01 09:51] LABS: Hemoglobin 11.3 g/dL (12.0-16.0); Mean Corpuscular HGB CONC 30.3 g/dL (32.0-36.0); Mean Corpuscular Hemoglobin 28.8 pg (27.0-31.0); Mean Corpuscular Volume 95.2 fL (78.0-98.0); Mean Platelet Volume 7.4 fL (7.4-10.4); Platelet Count 350 thou/uL (130-400); RBC Distribution Width 14.4 % (11.5-14.5); Red Blood Cell (RBC) Count 3.93 mill/uL (4.20-5.40)
[2021-10-01 09:58] LABS: ALT (SGPT) 12 U/L (8-55); AST (SGOT) 15 U/L (5-34); Albumin 4.4 g/dL (3.5-5.0); Alkaline Phosphatase 81 U/L (40-110); Anion Gap 21 mmol/L (10-20); BUN (Urea Nitrogen) 50 mg/dL (9.8-20.1); Bilirubin, Total 0.2 mg/dL (0.2-1.2); Calc. Creatinine Clearance 0 mL/min (70-130); Calcium 8.2 mg/dL (7.8-10.44); Carbon Dioxide 13 mmol/L (22-29); Chloride 111 mmol/L (98-107); Glucose 125 mg/dL (70-105); Potassium 4.1 mmol/L (3.5-5.1); Protein, Total 8.4 g/dL (6.0-8.3); Sodium 141 mmol/L (136-145)
[2021-10-01 10:08] LABS: Lymphocytes 3 % (21-51); MDiff Complete? YES; Monocytes 6 % (0-10); Neutrophil 91 % (42-75); Nucleated RBC 1 % (0); Platelet Morphology Comment Appears Adequate
== END 2021-10-01 11:45 | disposition home or self-care (01) ==
LOC: ERS 07:59
DX: G40.909 Epilepsy, unspecified, not intractable, without status epilepticus (principal); I10 Essential (primary) hypertension; E11.9 Type 2 diabetes mellitus without complications; E66.9 Obesity, unspecified; N60.01 Solitary cyst of right breast; Z87.891 Personal history of nicotine dependence
CPT/HCPCS: 80053; 85025; 96374; 96375; J1953; J2060

== ENCOUNTER 2021-10-01 18:31 | Emergency (ER) | payer MEDICARE, OTHER | END 2021-10-01 19:31 | disposition home or self-care (01) | LOC: ERS 18:31 | DX: G40.909 Epilepsy, unspecified, not intractable, without status epilepticus (principal) | CPT/HCPCS: 99284 ==

== ENCOUNTER 2021-11-10 12:15 | Outpatient (CLI) | payer MEDICARE, OTHER | END 2021-11-10 12:16 | disposition home or self-care (01) | LOC: BICRAD 12:15 | PROVIDERS: ATTEND Nurse Practitioner Acute Care | DX: R91.1 Solitary pulmonary nodule (principal); C50.411 Malignant neoplasm of upper-outer quadrant of right female breast; M89.9 Disorder of bone, unspecified | CPT/HCPCS: 71046 ==

== ENCOUNTER 2022-11-01 15:41 | Emergency (ER) | payer MEDICAID, MEDICARE, OTHER | END 2022-11-01 16:15 | disposition home or self-care (01) | LOC: ERS 15:41 | DX: R42 Dizziness and giddiness (principal); I10 Essential (primary) hypertension | CPT/HCPCS: 99284 ==

== ENCOUNTER 2024-02-19 09:06 | Outpatient (CLI) | payer OTHER | END 2024-02-19 09:07 | disposition home or self-care (01) | LOC: BICMAMMO 09:06 | PROVIDERS: ATTEND Internal Medicine Hematology & Oncology | DX: Z08 Encounter for follow-up examination after completed treatment for malignant neoplasm (principal); Z85.3 Personal history of malignant neoplasm of breast | CPT/HCPCS: 77066; G0279 ==